=== PATIENT | female | born 1960 | race Caucasian/White ===

== ENCOUNTER → 2016-03-30 | Outpatient (CLI) | payer BC ==
[~2016-03-30] MED LIST: CALC1CHW47 PO; IBUP600T44 PO; MULT-506 PO
== END | disposition home or self-care (01) ==
LOC: C.PATHSPEC 13:15
PROVIDERS: ATTEND Dermatology
DX: C44.321 Squamous cell carcinoma of skin of nose (principal); D23.5 Other benign neoplasm of skin of trunk; C44.719 Basal cell carcinoma of skin of left lower limb, including hip

== ENCOUNTER → 2016-04-28 | Outpatient (CLI) | payer BC | END | disposition home or self-care (01) | LOC: C.PATHSPEC 14:09 | PROVIDERS: ATTEND Dermatology | DX: Z08 Encounter for follow-up examination after completed treatment for malignant neoplasm (principal); Z85.828 Personal history of other malignant neoplasm of skin ==

== ENCOUNTER → 2016-05-17 | Outpatient (CLI) | payer BC | END | disposition home or self-care (01) | LOC: C.PATHSPEC 13:46 | PROVIDERS: ATTEND Dermatology | DX: D23.5 Other benign neoplasm of skin of trunk (principal) ==

== ENCOUNTER → 2016-07-05 | Outpatient (CLI) | payer BC | END | disposition home or self-care (01) | LOC: C.LABSPEC 16:23 | PROVIDERS: ATTEND Dermatology | DX: S81.802A Unspecified open wound, left lower leg, initial encounter (principal); X58.XXXA Exposure to other specified factors, initial encounter ==

== ENCOUNTER → 2016-07-08 | Outpatient (CLI) | payer BC | END | disposition home or self-care (01) | LOC: C.LABSPEC 12:55 | PROVIDERS: ATTEND Dermatology | DX: S81.802A Unspecified open wound, left lower leg, initial encounter (principal); X58.XXXA Exposure to other specified factors, initial encounter ==

== ENCOUNTER → 2016-10-11 | Outpatient (CLI) | payer BC ==
[2016-10-11 14:47] LABS: BASO % 0.4 %; BASO ABS # 0.02 K/uL (0-0.2); COMPLETE YES; EOS % 2.5 %; HEMATOCRIT 40.4 % (37-47); IG% 0.2 %; LYMPH % 22.1 %; LYMPH ABS # 1.06 K/uL (1.2-3.4); MEAN CELL VOLUME 93.3 fL (80-100); MEAN CORPUSCULAR HEMOGLOBIN 30.5 pg (25-34); MEAN CORPUSCULAR HGB CONC 32.7 g/dl (32-36); MEAN PLATELET VOLUME 10.1 fL (7.4-10.4); MONO % 7.7 %; NEUT % 67.1 %; PLATELET COUNT 265 K/uL (130-400); RED BLOOD COUNT 4.33 M/uL (4.2-5.4)
== END | disposition home or self-care (01) ==
LOC: C.LAB1850 12:59
PROVIDERS: ATTEND Family Medicine
DX: L50.9 Urticaria, unspecified (principal)

== ENCOUNTER → 2016-11-01 | Outpatient (CLI) | payer BC ==
[2016-11-01 10:21] LABS: BLOOD UREA NITROGEN 12 mg/dl (7-18); BUN/CREATININE RATIO 16.3 (10-20); CALCIUM 9.1 mg/dl (8.5-10.1); CARBON DIOXIDE 30 mmol/L (21-32); CHLORIDE 108 mmol/L (98-107); CHOLESTEROL 229 mg/dl (0-200); CREATININE 0.74 mg/dl (0.60-1.20); GLUCOSE 91 mg/dl (70-99); POTASSIUM 4.4 mmol/L (3.5-5.1); SODIUM 142 mmol/L (136-145)
[2016-11-01 10:35] LABS: HDL CHOLESTEROL 76 mg/dl; LDL CHOLESTEROL CALCULATED 132 mg/dl; TRIGLYCERIDES 103 mg/dl (0-150); VERY LOW DENSITY LIPOPROT CALC 21 mg/dl
[2016-11-01 10:54] LABS: ESTIMATED AVERAGE GLUCOSE 114 mg/dl; HA1C FLAG Normal (Normal)
== END | disposition home or self-care (01) ==
LOC: C.LAB1850 08:44
PROVIDERS: ATTEND Family Medicine
DX: Z00.00 Encounter for general adult medical examination without abnormal findings (principal); Z11.59 Encounter for screening for other viral diseases; Z13.220 Encounter for screening for lipoid disorders; Z13.1 Encounter for screening for diabetes mellitus; R07.89 Other chest pain

== ENCOUNTER → 2016-11-01 | Outpatient (CLI) | payer BC | END | disposition home or self-care (01) | LOC: C.MAMM 07:57 | PROVIDERS: ATTEND Family Medicine | DX: M85.851 Other specified disorders of bone density and structure, right thigh (principal); Z78.0 Asymptomatic menopausal state ==

== ENCOUNTER → 2016-12-08 | Outpatient (CLI) | payer BC | END | disposition home or self-care (01) | LOC: C.PATHSPEC 15:58 | PROVIDERS: ATTEND Dermatology | DX: L57.0 Actinic keratosis (principal); L82.1 Other seborrheic keratosis ==

== ENCOUNTER → 2017-06-08 | Outpatient (CLI) | payer OTHER ==
--- NOTE | 2017-06-08 15:16 | MAMMOGRAPHY REPORT ---
BILATERAL DIGITAL SCREENING MAMMOGRAM TOMOSYNTHESIS WITH CAD: 06/08/2017 CLINICAL HISTORY: Routine screening. Patient has no complaints. TECHNIQUE: Breast tomosynthesis in addition to standard 2D mammography was performed. Current study was also evaluated with a Computer Aided Detection (CAD) system. COMPARISON: Comparison is made to exams dated: 03/03/2016 mammogram, 03/02/2015 mammogram, 02/27/2014 m ammogram, 01/22/2013 mammogram, 01/16/2012 mammogram, and 01/10/2011 mammogram - [facility] [place]. BREAST COMPOSITION: There are scattered areas of fibroglandular density in both breasts. FINDINGS: No suspicious masses, calcifications, or areas of architectural distortion are noted in ei ther breast. There has been no significant interval change compared to prior exams. Scattered bilater al benign-appearing calcifications are not significantly changed. Small circumscribed benign-appeari ng masses scattered bilaterally are also stable. IMPRESSION: ACR BI-RADS CATEGORY 2: BENIGN There is no mammographic evidence of malignancy. A 1 year screening mammogram is recommended. The pa tient will receive written notification of the results. Approximately 10% of breast cancers are not detected with mammography. A negative mammographic report should not delay biopsy if a clinically suggestive mass is present. Ilene Meza M.D. /:06/08/2017 12:23:51 Drum Sander: Fiorella OROPEZA(R)(M), [facility] letter sent: Normal 1/2 BI-RADS Code: ACR BI-RADS Category 2: Benign
== END | disposition home or self-care (01) ==
LOC: C.MAMM 08:50
PROVIDERS: ATTEND Obstetrics & Gynecology
DX: Z12.31 Encounter for screening mammogram for malignant neoplasm of breast (principal)

== ENCOUNTER 2021-09-20 10:43 | Inpatient (IN) ==
[2021-09-20] MEDS ORDERED: SODIUM CHLORIDE 0.9% 1000ML 2,000 ML IV ONE (10:56)
[2021-09-20] MEDS ORDERED: KETOROLAC TROMETHAMINE 15 MG/ML VIAL IV ONE (10:56)
[2021-09-20] MEDS ORDERED: ONDANSETRON INJ 2 MG/ML 2 ML VIAL IV STA (10:56)
--- NOTE | 2021-09-20 11:00 | Emergency Department Note ---
Impression & Plan Acute hyponatremia, Diarrhea, ARLET (acute kidney injury), Acute hypokalemia ED Provider Note NAME: JENNIFER RODGERS AGE: 61 SEX: F : 1960 ARRIVES VIA: Walk-In INFORMANT: Patient ED PROVIDER(S): Ronnie Tamayo DO CHIEF COMPLAINT: Nausea/diarrhea HPI: Patient is a 61-year-old female with a past medical history of pancreatic cyst, basal cell carcinoma and lumbar radiculopathy that presents the ER for nausea and diarrhea. Symptoms started this past Monday. She notes that she was having chills and feeling hot and cold. She was very nauseated and has been having persistent diarrhea about every 1-2 hours since then. She also admits to anterior headache which started with the symptoms. Headache is about a 5 out of 10 and describes it as a throbbing pain. She called her doctor and Was seen and sent in by [facility] due to the persistent diarrhea. No chest pain or shortness of breath. No recorded fevers.Stools are now green in color. She denies any backpacking or hiking. No one around her has been sick. She been tested for COVID and was negative.No belly pain. ROS: See above HPI for pertinent positives & negatives. A total of 10 systems reviewed and were otherwise negative. PAST MEDICAL HISTORY:See Below PAST SURGICAL HISTORY:See Below FAMILY HISTORY:See Below SOCIAL HISTORY:See Below HOME MEDICATIONS:See Below ALLERGIES:See Below VITALS:See Below PHYSICAL EXAMINATION: GENERAL: Sitting up in bed, alert, well appearing, well nourished, no distress, non-toxic EYE EXAM: normal conjunctiva. PERRL and EOM's intact. OROPHARYNX: no exudate, no erythema, lips, buccal mucosa, and tongue normal and mucous membranes are moist NECK: supple, no nuchal rigidity, no adenopathy, non-tender LUNGS: Clear to auscultation. Normal chest wall mechanics HEART: no murmurs, S1 normal and S2 normal ABDOMEN: abdomen soft, non-tender, normo-active bowel sounds, no masses, no rebound or guarding. BACK: Back is symmetrical on inspection and there is no deformity, no midline tenderness, no CVA tenderness. SKIN: no rashes and no bruising UPPER EXTREMITIES: upper extremities are grossly normal. LOWER EXTREMITIES: No pitting edema. NEURO EXAM: Normal sensorium, cranial nerves II-XII intact, normal speech, no weakness of arms, no weakness of legs. No drift. Finger to nose intact. Gross sensation intact. Ambulates without difficulty. MEDICAL DECISION MAKING: Patient is a 61-year-old female who presents ER for above-stated complaint.IV was established blood work was obtained. Labs show mild leukopenia at 4000. Hemoglobin was slightly elevated at 16 likely secondary to dehydration. BMP with hyponatremia 124 and hypokalemia 2.8. Creatinine was elevated 2.4. Lactate LFTs lipase were unremarkable. UA was clean. Ordered a stool culture but she was unable to give this in the ER. CT abdomen pelvis was unremarkable. She was given 3 L of IV fluids while in the ER. She was updated bedside discussed with the hospitalist admitted for further work-up. Triage Nursing notes reviewed. Limited review of prior medical records performed Vital Signs: reviewed and remarkable for no significant abnormalities Differential diagnosis: Differential diagnoses includes but is not limited to gastritis, peptic ulcer disease, GERD, gallbladder disease, pancreatitis, small bowel obstruction, acute coronary syndrome, pericarditis, ischemic bowel, irritable bowel disease, irritable bowel syndrome, appendicitis, diverticulitis, malignancy, hernia, urinary tract infection, torsion, /ectopic (if female), perforation, trauma, infectious. ER treatment provided: See below Diagnostics interpreted by me: ECG: none Cardiac Monitoring: An order was placed for continuous cardiac monitoring. The monitor shows a rate of 70 with sinus rhythm. Laboratory studies: As stated above and show below. Imaging studies: CT abdomen pelvis was unremarkable Consultation(s): Discussed with hospitalist for further evaluation [facility] [place] Procedures: none Critical Care: None Past Med/Surg History Medical History (Updated 09/20/21 @ 17:37 by Ronnie Tamayo DO) Disc degeneration, lumbar Dysplastic nevus H/O carcinoma in situ of skin Herpes simplex type 1 infection History of basal cell carcinoma History of squamous cell carcinoma in situ of skin Lumbar radiculopathy Osteopenia Pancreatic cyst Surgical History S/P appendectomy S/P tubal ligation S/P vaginal hysterectomy secondary to uterine prolapse Family History Mother Cardiac pacemaker Pancreas cancer Father Hypertension Type 2 diabetes mellitus History of heart valve replacement Sister Melanoma Denies family history of Colon cancer Ovarian cancer Breast cancer Social History Smoking Status: Never smoker Second Hand Exposure: No; Hx Alcohol Use: Yes (Social) Hx Substance Use: No Preferred Language: Pashto marital status: current occupational status: retired Feels Safe at Home: Yes Dental Care, Regularly: Yes Physical Activity Frequency: Other Physical Activity Frequency Comment: Regularly Seatbelt Use: always Sunscreen Use: Yes Allergies Allergies Allergy/AdvReac Type Severity Reaction Status Date / Time lactose AdvReac Gastrointestinal Unverified 09/20/21 15:43 Upset Home Meds Home Medications Medication Instructions Recorded Confirmed No Known Home Medications 09/20/21 09/20/21 Results & Data (ED) Vital Signs Vital Signs - 24 hr 09/20/21 10:43 09/20/21 10:45 09/20/21 10:56 Temperature 36.4 C L Temperature Source Temporal Artery Scan Pulse Rate 88 90 88 Pulse Rate [Apical] 88 Pulse Rhythm Regular Regular Pulse Rhythm [Apical] Regular Pulse Strength [Apical] Normal Respiratory Rate 20 16 19 Respiratory Effort / Characteristics Non-Labored Spontaneous Respiratory Depth Normal Respiratory Pattern Regular Blood Pressure 131/93 Blood Pressure [Right Arm] 136/94 Blood Pressure Mean 105 Blood Pressure Mean [Right Arm] 108 Blood Pressure Position [Right Arm] Sitting Pulse Oximetry 98 97 98 Oxygen Delivery Method Room Air Room Air Room Air Sepsis Recent Fever Within 48 Hours No Sepsis New/Unexplained Change in Mental Status No Sepsis Action Taken by Nursing No Action Required 09/20/21 11:30 09/20/21 12:00 09/20/21 14:05 Temperature Temperature Source Pulse Rate Pulse Rate [Apical] 72 74 72 Pulse Rhythm Pulse Rhythm [Apical] Pulse Strength [Apical] Respiratory Rate 20 20 20 Respiratory Effort / Characteristics Non-Labored Non-Labored Non-Labored Respiratory Depth Normal Normal Normal Respiratory Pattern Blood Pressure Blood Pressure [Right Arm] 151/95 H 136/94 127/82 Blood Pressure Mean Blood Pressure Mean [Right Arm] 113 108 97 Blood Pressure Position [Right Arm] Pulse Oximetry 96 98 98 Oxygen Delivery Method Room Air Room Air Room Air Sepsis Recent Fever Within 48 Hours Sepsis New/Unexplained Change in Mental Status Sepsis Action Taken by Nursing Laboratory Data Result diagrams: 09/20/21 11:25 09/20/21 14:38 Lab Results 09/20/21 09/20/21 09/20/21 Range/Units 11:10 11:25 11:25 WBC 4.49 L (4.8-10.8) K/uL RBC 5.28 (4.2-5.4) M/uL Hgb 16.6 H (12.0-16.0) g/dL Hct 46.1 (37-47) % MCV 87.3 (80-100) fL MCH 31.4 (25-34) pg MCHC 36.0 (32-36) g/dL RDW Std Deviation 43.6 (36.4-46.3) fL RDW Coeff of Aby 13.6 (11.5-14.5) % Plt Count 288 (130-400) K/uL MPV 10.6 H (7.4-10.4) fL Immature Gran % (Auto) 0.2 % Neut % (Auto) 84.3 % Lymph % (Auto) 8.2 % [place] % (Auto) 7.3 % Eos % (Auto) 0.0 % Baso % (Auto) 0.0 % Neut # (Auto) 3.78 (1.4-6.5) K/uL Lymph # (Auto) 0.37 L (1.2-3.4) K/uL [place] # (Auto) 0.33 (0.11-0.59) K/uL Eos # (Auto) 0.00 (0-0.5) K/uL Baso # (Auto) 0.00 (0-0.2) K/uL Immature Gran # (Auto) 0.01 (0.00-0.02) K/uL Sodium 124 L (136-145) mmol/L Potassium 2.8 L (3.5-5.1) mmol/L Chloride 85 L (98-107) mmol/L Carbon Dioxide 22 (21-32) mmol/L Anion Gap 17 H (3-11) BUN 50 H (6-23) mg/dl Creatinine 2.49 H (0.6-1.2) mg/dl Est Cr Clr Drug Dosing 22.4 ml/min Est GFR ( Amer) 23.4 ml/min Est GFR (Non-Af Amer) 20.2 ml/min BUN/Creatinine Ratio 20.1 H (10-20) Glucose 110 H (70-99(Fasting)) mg/dl Calcium 9.9 (8.5-10.1) mg/dl Magnesium (1.7-2.4) mg/dl Total Bilirubin 0.5 (0.2-1.0) mg/dl AST 27 (13-39) U/L ALT 25 (7-52) U/L Alkaline Phosphatase 95 (34-104) U/L Total Protein 8.8 H (6.0-8.3) gm/dl Albumin 5.0 (3.4-5.0) gm/dl Globulin 3.8 (2.5-4.0) gm/dl Albumin/Globulin Ratio 1.3 (0.9-2) Lipase 13 (11-82) U/L SARS-CoV-2 (PCR) NEGATIVE (Negative) Influenza Type A (PCR) Negative (Neg) Influenza Type B (PCR) Negative (Neg) RSV (RT-PCR) Negative (Neg) 09/20/21 Range/Units 11:25 WBC (4.8-10.8) K/uL RBC (4.2-5.4) M/uL Hgb (12.0-16.0) g/dL Hct (37-47) % MCV (80-100) fL MCH (25-34) pg MCHC (32-36) g/dL RDW Std Deviation (36.4-46.3) fL RDW Coeff of Aby (11.5-14.5) % Plt Count (130-400) K/uL MPV (7.4-10.4) fL Immature Gran % (Auto) % Neut % (Auto) % Lymph % (Auto) % [place] % (Auto) % Eos % (Auto) % Baso % (Auto) % Neut # (Auto) (1.4-6.5) K/uL Lymph # (Auto) (1.2-3.4) K/uL [place] # (Auto) (0.11-0.59) K/uL Eos # (Auto) (0-0.5) K/uL Baso # (Auto) (0-0.2) K/uL Immature Gran # (Auto) (0.00-0.02) K/uL Sodium (136-145) mmol/L Potassium (3.5-5.1) mmol/L Chloride (98-107) mmol/L Carbon Dioxide (21-32) mmol/L Anion Gap (3-11) BUN (6-23) mg/dl Creatinine (0.6-1.2) mg/dl Est Cr Clr Drug Dosing ml/min Est GFR ( Amer) ml/min Est GFR (Non-Af Amer) ml/min BUN/Creatinine Ratio (10-20) Glucose (70-99(Fasting)) mg/dl Calcium (8.5-10.1) mg/dl Magnesium 2.3 (1.7-2.4) mg/dl Total Bilirubin (0.2-1.0) mg/dl AST (13-39) U/L ALT (7-52) U/L Alkaline Phosphatase (34-104) U/L Total Protein (6.0-8.3) gm/dl Albumin (3.4-5.0) gm/dl Globulin (2.5-4.0) gm/dl Albumin/Globulin Ratio (0.9-2) Lipase (11-82) U/L SARS-CoV-2 (PCR) (Negative) Influenza Type A (PCR) (Neg) Influenza Type B (PCR) (Neg) RSV (RT-PCR) (Neg) Administered Medications Discontinued Medications Sodium Chloride (Nss 1000ml) 2,000 mls @ 999 mls/hr IV .Q2H1M ONE Stop: 09/20/21 12:56 Last Infusion: 09/20/21 13:15 Dose: 0 mls/hr Documented by: [id number] Admin: 09/20/21 11:24 Dose: 999 mls/hr Documented by: [id number] Parenteral Electrolytes (Normosol-R) 1,000 mls @ 999 mls/hr IV .Q1H1M ONE Stop: 09/20/21 13:44 Last Infusion: 09/20/21 14:49 Dose: 0 mls/hr Documented by: [id number] Admin: 09/20/21 13:15 Dose: 999 mls/hr Documented by: [id number] Potassium Chloride (K Charles / Wtr) 10 meq in 100 mls @ 100 mls/hr IV ONE ONE; Protocol Stop: 09/20/21 13:43 Last Infusion: 09/20/21 14:49 Dose: 0 mls/hr Documented by: [id number] Admin: 09/20/21 13:18 Dose: 100 mls/hr Documented by: [id number] Magnesium Sulfate/Dextrose (Magnesium Sulfate / D5w) 1 gm in 100 mls @ 100 mls/hr IV NOW STA Stop: 09/20/21 13:44 Last Infusion: 09/20/21 15:43 Dose: 0 mls/hr Documented by: [id number] Admin: 09/20/21 14:43 Dose: 100 mls/hr Documented by: [id number] Ketorolac Tromethamine (Ketorolac Tromethamine 15 Mg/Ml Vial) 15 mg IV NOW ONE Stop: 09/20/21 10:57 Last Admin: 09/20/21 11:24 Dose: 15 mg Documented by: [id number] Ondansetron HCl (Ondansetron Inj 2 Mg/Ml 2 Ml Vial) 4 mg IV NOW STA Stop: 09/20/21 10:57 Last Admin: 09/20/21 11:24 Dose: 4 mg Documented by: [id number] Potassium Chloride (Potassium Chloride Crtab 20 Meq Tabcr) 40 meq PO NOW STA Stop: 09/20/21 12:45 Last Admin: 09/20/21 13:17 Dose: 40 meq Documented by: [id number] Imaging Data Radiologist's Impression: Head CT 09/20/21 10:56 CT OF THE HEAD WITHOUT CONTRAST CLINICAL HISTORY: Headache. COMPARISON STUDY: No previous studies for comparison. CT DOSE: 614.27 mGy.cm TECHNIQUE: Helical axial images of the head were obtained without IV contrast. A utomated exposure control was utilized for the study. A dose lowering technique was utilized adhering to the principles of ALARA. FINDINGS: No acute intracranial hemorrhage, midline shift or mass effect is present. The ventricular system is unremarkable. The basal cisterns are patent. No extra-axial collections are present. There are no findings to suggest acute dural sinus thrombosis or acute territorial infarct. No significant calvarial abnormalities are present. Visualized portions of the sinuses and mastoid air cells are clear. IMPRESSION: No acute intracranial findings. ACT 112: Negative or not required by law. Electronically signed by: Gary Harmon M.D. 09/20/2021 11:58 AM Abdomen/Pelvis CT 09/20/21 13:14 CT SCAN OF THE ABDOMEN AND PELVIS WITHOUT IV CONTRAST CLINICAL HISTORY: Nausea and vomiting. Fever. Acute renal insufficiency. COMPARISON STUDY: Abdominal CT dated 11/08/2019 TECHNIQUE: CT scan of the abdomen and pelvis is performed from the lung bases to the proximal femora. Images are reviewed in the axial, sagittal, and coronal planes. IV contrast was not administered for this examination due to poor renal function. A dose lowering technique was utilized adhering to the principles of ALARA. CT DOSE: 326.37 mGy.cm FINDINGS: Lung bases: The heart is normal in size noting trace pericardial effusion. The lung bases are clear noting dependent atelectasis. There is a tiny hiatal hernia. Liver: The unenhanced liver is normal in size, contour, and attenuation. There is no intrahepatic biliary ductal dilatation. Gallbladder: There are gallstones with no CT evidence of acute cholecystitis. Spleen: Normal in size and attenuation. Pancreas: A 12 mm simple cystic lesion of the pancreatic body is unchanged from 2019 and typical for a sidebranch IPMN. The unenhanced pancreas is otherwise normal as visualized. Adrenal glands: Unremarkable. Kidneys: The unenhanced kidneys are normal in size and without hydronephrosis. There are no renal calculi identified. There is no evidence of contour deforming renal mass lesion. Abdominal vasculature: The abdominal aorta is normal in course and caliber noting mild to moderate atherosclerotic calcification. Bowel: Liquid stool seen throughout the colon. There is mild colonic wall thickening and pericolonic infiltration. The appearance is typical for a nonspecific pancolitis. This is greatest involving the right:. The cecum is mildly distended measuring up to 7 cm in diameter. This is similar to previous. The appendix is not identified and reported surgically absent. Peritoneum: There is no intraperitoneal free air or abdominal ascites. There is a fat-containing umbilical hernia. Lymphadenopathy: None. Pelvic viscera: The bladder is normal as visualized. The uterus is surgically absent. No adnexal lesion is seen. Skeletal structures: The skeletal structures are osteopenic. There is mild lumbosacral spondylosis and scoliosis. No lytic or blastic lesions are seen. IMPRESSION: 1. Findings are consistent with a nonspecific pancolitis. This is likely on an infectious or inflammatory basis and clinical correlation will be required. 2. No bowel obstruction. 3. Cholelithiasis. 4. Additional findings as above. ACT 112: Negative or not required by law. Electronically signed by: Atul Murray M.D. 09/20/2021 4:32 PM Discharge Plan Visit Data Chief Complaint: Dehydration Stated Complaint: DEHYDRATION,REF BY DOC ED Provider: Ronnie Tamayo Discharge Problem: Acute hyponatremia, Diarrhea, ARLET (acute kidney injury), Acute hypokalemia Discharge Problem: Diarrhea Qualifiers: Diarrhea type: unspecified type Qualified Code(s): R19.7 - Diarrhea, unspecified
--- NOTE | 2021-09-20 11:59 | CT Scan Report ---
CT OF THE HEAD WITHOUT CONTRAST CLINICAL HISTORY: Headache. COMPARISON STUDY: No previous studies for comparison. CT DOSE: 614.27 mGy.cm TECHNIQUE: Helical axial images of the head were obtained without IV contrast. Automated exposure con trol was utilized for the study. A dose lowering technique was utilized adhering to the principles o f ALARA. FINDINGS: No acute intracranial hemorrhage, midline shift or mass effect is present. The ventricular system is unremarkable. The basal cisterns are patent. No extra-axial collections are present. There are no findings to suggest acute dural sinus thrombosis or acute territorial infarct. No significant calvarial abnormalities are present. Visualized portions of the sinuses and mastoid air cells are ham ar. IMPRESSION: No acute intracranial findings. ACT 112: Negative or not required by law. Electronically signed by: Gary Harmon M.D. 09/20/2021 11:58 AM
[2021-09-20 12:04] LABS: Influenza A virus by PCR Negative (Neg); Influenza B virus by PCR Negative (Neg); RSV by PCR Negative (Neg); SARS CoV2 RNA(COVID-19) InHosp NEGATIVE (Negative)
[2021-09-20 12:14] LABS: Albumin Globulin Ratio 1.3 (0.9-2); BUN Creatinine Ratio 20.1 (10-20); Bilirubin,Total 0.5 mg/dl (0.2-1.0); Calcium 9.9 mg/dl (8.5-10.1); Creatinine Clr Calc Pharmacy 22.4 ml/min; Est GFR (African American) 23.4 ml/min; Est GFR (Non-African American) 20.2 ml/min; Globulin 3.8 gm/dl (2.5-4.0); Potassium 2.8 mmol/L (3.5-5.1); Total Protein 8.8 gm/dl (6.0-8.3)
[2021-09-20 12:17] LABS: Hematocrit (blood only) 46.1 % (37-47); Hemoglobin 16.6 g/dL (12.0-16.0); Mean Corpuscular Hemoglobin 31.4 pg (25-34); Mean Corpuscular Volume 87.3 fL (80-100); Mean Platelet Volume 10.6 fL (7.4-10.4); Platelet Count 288 K/uL (130-400); RDW Coefficient of Variation 13.6 % (11.5-14.5); RDW Standard Deviation 43.6 fL (36.4-46.3); Red Blood Count 5.28 M/uL (4.2-5.4); White Blood Count 4.49 K/uL (4.8-10.8)
[2021-09-20 12:44] LABS: Immature Granulocytes # (auto) 0.01 K/uL (0.00-0.02); Immature Granulocytes % (auto) 0.2 %; Lymphocytes # (auto) 0.37 K/uL (1.2-3.4); Lymphocytes % (auto) 8.2 %; Monocytes # (auto) 0.33 K/uL (0.11-0.59); Monocytes % (auto) 7.3 %; Neutrophils # (auto) 3.78 K/uL (1.4-6.5); Neutrophils % (auto) 84.3 %
[2021-09-20] MEDS ORDERED: POTASSIUM CHLORIDE / WTR 10 MEQ/100 ML PLCT IV ONE (12:44)
[2021-09-20] MEDS ORDERED: NORMOSOL-R 1,000 ML IV ONE (12:44)
[2021-09-20] MEDS ORDERED: POTASSIUM CHLORIDE CRTAB 20 MEQ TABCR PO STA (12:44)
[2021-09-20] MEDS ORDERED: MAGNESIUM SULFATE / D5W 1 GM/100 ML BAG IV STA (12:45)
--- NOTE | 2021-09-20 14:04 | History & Physical Report ---
Date of Service September 20, 2021 Assessment & Plan (1) Diarrhea: Plan: Patient with 4 day history of diarrhea, n/v resulting in hypovolemia, electrolyte disturbances, and ARLET - Symptoms appeared to have started following food ingestion- stool sample pending - is without blood in stools - DDX- Viral gastroenteritis vs. Bacterial Gastroenteritis, vs. Tickborne or combination - Supportive care with clears, IVF resuscitation, nausea medications and clear bland diet - Salmonella toxin positive in stool - awaiting speciation - since hospitalized and sympotmatic- Levaquin daily IV until able to tolerate PO (2) Leukopenia: Plan: As above - bacterial vs. tickborne vs. hematological - leukopenia although without elevated LFTs - remains with myalgias and headaches, diarrhea - will send lyme and anap lasmosis - Will start on Doxycycline IV q 12 - Had leukopenia in 11/14 with routine lab draw down to 3.31- no further workup performed - was drawn for fatigue (3) Hyponatremia: Plan: At this time history most consistent with decrease in oral solute intake and free water loss - symptomatic possibly with headache - serum osmo, serum osmo, and urine sodium pending - Continue with Crystalloid infusion - follow BMP q4 hour- goal maximum would be 8mmol/24hour- 132meq - NA 135 on secondary check at 1830- change to D5W overnight (4) Hypokalemia: Plan: Secondary to decrease oral intake with stool losses - Oral replacement already started in EMD with 40meq PO and 10meq IV - will give aother 40meq tonight - 20 meq in AM if needed (5) ARLET (acute kidney injury): Plan: Likely pre-renal - Will obtain CT of abdomen and pelvis to evaluate for obstructive or infective pathology - Urine NA pending - UA pending - HCO3 22 - no new medications started - IVF as above follow BMP - AG of 17 with noted increase in BUN to 50 - (6) Headache: Plan: Top of headache, not noted to make nausea worse - likely multifactorial at this time with - hypovolemia, hyponatremia - CT scan in EMD without acute pathology - without fevers, without encephalopathy, and without seizure - Maybe consistent with lyme- as above - IVF as above follow with correction of sodium and volume status, - Tylenol PRN - Will have PRN dose of Sumatriptan with hx migraines- History of Present Illness Primary Care Provider: Jessy Rangel DO 61 YOF with medical history of: Lyme disease, altitude sickness, basal cell carcinoma/squamous cell carcinoma of the skin, DGD. Patient comes to the EMD today for complaints of N/V/D and headache associated with dizziness that has been on going for past 4 days. Patient states that on Monday the patient was out power-washing the house and deck with mold and water, Monday she ate some ham and egg whites, and then started to develop n/v/diarrhea approx 2-3 hours after eating. Her stools have mostly been water and initially were brown and then changed to light green sat-into Monday. She has been trying to drink but about 20-30 minutes after drinking she becomes nauseated and either vomits or has diarrhea. Her abdominal pain is mostly in the lower quadrant but she refers to it as just with the gurgling before diarrheal episode. She also endorses a headache at the top of her head that just got worse this morning, which is why she came to EMD as well as she got dizzy going up the steps to go the bathroom yesterday evening. There has not been any blood or mucous in the stools. In the EMD the patient had routine labs performed and CT scan of her head for her headache. Her BMP returns with hyponatremia to 124 and hypochloridemia. She is also noted with increase in her BUN and AUTOM[employer]IAN to 50/2.49, hypokalemia. Her WBC is mildly leukopenic. Patient has history of Lyme disease back in 2019, and she reports that she feels maday like that at this time but without the myalgias. She endorses that she pulls ticks off her all the time. Will send anaplasmosis and tick labs as well as start her on Doxycycline. Will admit for IV fluids and electrolyte management. COVID test on admission is: NEGATIVE, this was also NEGATIVE as outpatient at the end of last week. Allergies Allergy/AdvReac Type Severity Reaction Status Date / Time lactose AdvReac Gastrointestinal Unverified 09/20/21 15:43 Upset Home Medications Medication Instructions Recorded Confirmed Type No Known Home Medications 09/20/21 09/20/21 History Past Med/Surg History Medical History (Updated 09/20/21 @ 17:37 by Ronnie Tamayo DO) Disc degeneration, lumbar Dysplastic nevus H/O carcinoma in situ of skin Herpes simplex type 1 infection History of basal cell carcinoma History of squamous cell carcinoma in situ of skin Lumbar radiculopathy Osteopenia Pancreatic cyst Surgical History S/P appendectomy S/P tubal ligation S/P vaginal hysterectomy secondary to uterine prolapse Family History Mother Cardiac pacemaker Pancreas cancer Father Hypertension Type 2 diabetes mellitus History of heart valve replacement Sister Melanoma Denies family history of Colon cancer Ovarian cancer Breast cancer Social History Smoking Status: Never smoker Second Hand Exposure: No; Hx Alcohol Use: Yes Alcohol type: wine Hx Substance Use: No Preferred Language: [place] Communication Ability: Effective [employer] Administrator Required: No marital status: Current Living Situation: Spouse current occupational status: retired Other Information That Helps Us Care for You: No Feels Safe at Home: Yes Dental Care, Regularly: Yes Physical Activity Frequency: Other Physical Activity Frequency Comment: Regularly Seatbelt Use: always Sunscreen Use: Yes Review of Systems Review of Systems: REVIEW OF SYSTEMS: Constitutional: (+) cold sweats and chills, No fever Eyes: No diplopia, no worsening or blurred vision ENT: normal hearing, no trouble swallowing Respiratory: No cough, sputum, dyspnea at rest or on exertion Cardiovascular: No chest pain, tightness or palpitations Abdomen: (+) nausea, vomiting, diarrhea, No pain, or constipation Musculoskeletal: No joint pain, calf pain, swelling Neurologic: No weakness, numbness/tingling, or balance problems Psychiatric: No anxiety or depression Skin: No rash or itch Physical Exam Physical Exam: PHYSICAL EXAM: General: awake, alert, fatigued appearing Head: headache across the top of head, Normocephalic, atraumatic ENT: PERRLA, EOMI, no pharyngeal exudate, mucous membranes dry Neuro: AAO x 3, speech clear and appropriate, strength intact bilaterally 5/5, sensation intact and equal all extremities and dermatomes, no pronator drift Chest: equal rise and fall of the chest, no accessory muscle use, no heaves or thrills, Clear to auscultation, on room air, Cardiac: Regular rate and rhythm, telemetry reviewed, skin warm dry, cap refill <3 seconds, peripheral pulses +2 no JVD, no murmur, no edema GI: NABS hyperactive all quadrants, soft, nontender to palpation, no rebound, guarding or tenderness : Spontaneously voiding, no pain, no CVA tenderness, Extremities: Normal inspection, no peripheral edema or erythema, calfs nontender to palpation Psych: Normal mood and affect Skin: no rash or erythema Results & Data Results & Data ([facility]) Vital Signs (Past 12 Hours) Vital Signs Temp Pulse Pulse Resp BP BP Pulse Ox 09/20/21 10:56 88 19 98 09/20/21 10:45 36.4 C L 90 16 131/93 97 09/20/21 10:43 88 88 20 136/94 98 Laboratory Results Abnormal lab results 09/20/21 09/20/21 Range/Units 11:25 11:25 WBC 4.49 L (4.8-10.8) K/uL Hgb 16.6 H (12.0-16.0) g/dL MPV 10.6 H (7.4-10.4) fL Lymph # (Auto) 0.37 L (1.2-3.4) K/uL Sodium 124 L (136-145) mmol/L Potassium 2.8 L (3.5-5.1) mmol/L Chloride 85 L (98-107) mmol/L Anion Gap 17 H (3-11) BUN 50 H (6-23) mg/dl Creatinine 2.49 H (0.6-1.2) mg/dl BUN/Creatinine Ratio 20.1 H (10-20) Glucose 110 H (70-99(Fasting)) mg/dl Total Protein 8.8 H (6.0-8.3) gm/dl Diagnostic Findings Head CT 09/20/21 10:56 CT OF THE HEAD WITHOUT CONTRAST CLINICAL HISTORY: Headache. COMPARISON STUDY: No previous studies for comparison. CT DOSE: 614.27 mGy.cm TECHNIQUE: Helical axial images of the head were obtained without IV contrast. Automated exposure control was utilized for the study. A dose lowering technique was utilized adhering to the principles of ALARA. FINDINGS: No acute intracranial hemorrhage, midline shift or mass effect is present. The ventricular system is unremarkable. The basal cisterns are patent. No extra-axial collections are present. There are no findings to suggest acute dural sinus thrombosis or acute territorial infarct. No significant calvarial abnormalities are present. Visualized portions of the sinuses and mastoid air cells are clear. IMPRESSION: No acute intracranial findings. ACT 112: Negative or not required by law. Electronically signed by: Gary Harmon M.D. 09/20/2021 11:58 AM Medications Administered Home Medications acetazolamide 125 mg tablet 125 mg PO BID PRN 4 Days #8 tab 11/11/20 [Rx Confirmed 11/11/20] methocarbamol 500 mg tablet 500 mg PO QID PRN #30 tab 07/19/21 [Rx] Discontinued Medications Sodium Chloride (Nss 1000ml) 2,000 mls @ 999 mls/hr IV .Q2H1M ONE Stop: 09/20/21 12:56 Last Infusion: 09/20/21 13:15 Dose: 0 mls/hr Documented by: [id number] Admin: 09/20/21 11:24 Dose: 999 mls/hr Documented by: [id number] Parenteral Electrolytes (Normosol-R) 1,000 mls @ 999 mls/hr IV .Q1H1M ONE Stop: 09/20/21 13:44 Last Admin: 09/20/21 13:15 Dose: 999 mls/hr Documented by: [id number] Potassium Chloride (K Charles / Wtr) 10 meq in 100 mls @ 100 mls/hr IV ONE ONE; Protocol Stop: 09/20/21 13:43 Last Admin: 09/20/21 13:18 Dose: 100 mls/hr Documented by: [id number] Ketorolac Tromethamine (Ketorolac Tromethamine 15 Mg/Ml Vial) 15 mg IV NOW ONE Stop: 09/20/21 10:57 Last Admin: 09/20/21 11:24 Dose: 15 mg Documented by: [id number] Ondansetron HCl (Ondansetron Inj 2 Mg/Ml 2 Ml Vial) 4 mg IV NOW STA Stop: 09/20/21 10:57 Last Admin: 09/20/21 11:24 Dose: 4 mg Documented by: [id number] Potassium Chloride (Potassium Chloride Crtab 20 Meq Tabcr) 40 meq PO NOW STA Stop: 09/20/21 12:45 Last Admin: 09/20/21 13:17 Dose: 40 meq Documented by: [id number] ECG Additional Comments: Normal sinus rhythm Possible Left atrial enlargement Borderline ECG When c ompared with ECG of 30-AUG-2007 10:03, T wave amplitude has decreased in Lateral leads Code Status & VTE Plan Code Status CODE: FULL VTE: SCDS, Heparin 5000 units subq Q12 Supervising Physician Co-Signing Physician Notes I personally saw and examined the patient. I verified all goss points and agree with CARIE Cardozo with the following exceptions and/or additions: 61 year old female who presents to the ER with 4 days history of diarrhea and ARLET. GI stool PCR positive for salmonella. No known immunosuppression. O/E HS1+2, no murmurs, Ches CTAB, Abdo SNT, BS hyperactive A/P Salmonella diarrhea - start Levaquin 500mg IV for 5-7 days given severity of illness causing ARLET and need for hospitalization PG Care Time/CCT Total # of Minutes Spent Total Time Spent with Patient: Total time spent is greater than 50% in coordination of care (as documented) at patient's floor/unit and/or counseling patient: Coding Level of Care Code 04354 Initial Inpt Care Lvl 3 Diagnoses Diarrhea R19.7 Hyponatremia E87.1 Hypokalemia E87.6 ARLET (acute kidney injury) N17.9 Leukopenia D72.819 Headache R51.9
[2021-09-20 14:59] LABS: Appearance Urine Clear (Clear); Bilirubin Urine Negative (Negative); Blood Urine Negative (Negative); Color Urine Yellow; Glucose Urine UA Negative (Negative); Ketones Urine Negative (Negative); Leukocyte Esterase Urine Negative (Negative); Nitrite Urine Negative (Negative); Protein Urine Negative (Negative); Specific Gravity Urine 1.004 (1.000-1.030); Urobilinogen Urine Negative (Negative); pH Urine 5.5 (4.5-7.5)
[2021-09-20 15:40] LABS: Procalcitonin 0.75 ng/ml (0-0.5)
[2021-09-20 15:48] LABS: Lyme Ab IgG w/WB Rflx Negative (Negative); Lyme Ab IgM w/WB Rflx Negative (Negative)
[2021-09-20 15:56] LABS: BUN Creatinine Ratio 25.8 (10-20); C Reactive Protein 22.77 mg/dl (0-0.5); Calcium 7.7 mg/dl (8.5-10.1); Est GFR (African American) 41.5 ml/min; Est GFR (Non-African American) 35.8 ml/min; Potassium 3.2 mmol/L (3.5-5.1)
--- NOTE | 2021-09-20 16:34 | CT Scan Report ---
CT SCAN OF THE ABDOMEN AND PELVIS WITHOUT IV CONTRAST CLINICAL HISTORY: Nausea and vomiting. Fever. Acute renal insufficiency. COMPARISON STUDY: Abdominal CT dated 11/08/2019 TECHNIQUE: CT scan of the abdomen and pelvis is performed from the lung bases to the proximal femora. Images are reviewed in the axial, sagittal, and coronal planes. IV contrast was not administered for this examination due to poor renal function. A dose lowering technique was utilized adhering to the principles of ALARA. CT DOSE: 326.37 mGy.cm FINDINGS: Lung bases: The heart is normal in size noting trace pericardial effusion. The lung bases are clear n oting dependent atelectasis. There is a tiny hiatal hernia. Liver: The unenhanced liver is normal in size, contour, and attenuation. There is no intrahepatic kye iary ductal dilatation. Gallbladder: There are gallstones with no CT evidence of acute cholecystitis. Spleen: Normal in size and attenuation. Pancreas: A 12 mm simple cystic lesion of the pancreatic body is unchanged from 2019 and typical for a sidebranch IPMN. The unenhanced pancreas is otherwise normal as visualized. Adrenal glands: Unremarkable. Kidneys: The unenhanced kidneys are normal in size and without hydronephrosis. There are no renal herlinda culi identified. There is no evidence of contour deforming renal mass lesion. Abdominal vasculature: The abdominal aorta is normal in course and caliber noting mild to moderate at herosclerotic calcification. Bowel: Liquid stool seen throughout the colon. There is mild colonic wall thickening and pericolonic infiltration. The appearance is typical for a nonspecific pancolitis. This is greatest involving the right:. The cecum is mildly distended measuring up to 7 cm in diameter. This is similar to previous. The appendix is not identified and reported surgically absent. Peritoneum: There is no intraperitoneal free air or abdominal ascites. There is a fat-containing umbi lical hernia. Lymphadenopathy: None. Pelvic viscera: The bladder is normal as visualized. The uterus is surgically absent. No adnexal lesi on is seen. Skeletal structures: The skeletal structures are osteopenic. There is mild lumbosacral spondylosis an d scoliosis. No lytic or blastic lesions are seen. IMPRESSION: 1. Findings are consistent with a nonspecific pancolitis. This is likely on an infectious or inflamma tory basis and clinical correlation will be required. 2. No bowel obstruction. 3. Cholelithiasis. 4. Additional findings as above. ACT 112: Negative or not required by law. Electronically signed by: Atul Murray M.D. 09/20/2021 4:32 PM
[2021-09-20] MEDS ORDERED: ACETAMINOPHEN 325 MG TAB PO PRN (17:18)
[2021-09-20] MEDS ORDERED: LACTATED RINGER'S 1,000 ML IV SCH (17:18)
[2021-09-20] MEDS ORDERED: ONDANSETRON INJ 2 MG/ML 2 ML VIAL IV PRN (17:18)
[2021-09-20] MEDS ORDERED: PROMETHAZINE HCL 12.5 MG in SODIUM CHLORIDE 0.9% 50 ML IV PRN (17:18)
[2021-09-20] MEDS ORDERED: DOXYCYCLINE HYCLATE 100 MG in DEXTROSE 5% 100 ML IV ONE (17:30)
[2021-09-20] MEDS ORDERED: POTASSIUM CHLORIDE CRTAB 20 MEQ TABCR PO ONE (18:00)
[2021-09-20 18:15] LABS: Campylobacter PCR Not Detected (NotDetected); Clostridium diff Toxin A/B PCR Not Detected (NotDetected); Enteroaggregative E.coli(EAEC) Not Detected (NotDetected); Enteropathogenic E.coli (EPEC) Not Detected (NotDetected); Enterotoxigenic E.coli (ETEC) Not Detected (NotDetected); Plesiomonas shigelloides PCR Not Detected (NotDetected); Shiga-like Toxin E.coli (STEC) Not Detected (NotDetected); Vibrio cholerae PCR Not Detected (NotDetected); Vibrio species PCR Not Detected (NotDetected); Yersinia enterocolitica PCR Not Detected (NotDetected)
[2021-09-20 18:16] LABS: Adenovirus F 40/41 PCR Not Detected (NotDetected); Astrovirus PCR Not Detected (NotDetected); Cryptosporidium PCR Not Detected (NotDetected); Cyclospora cayetanensis PCR Not Detected (NotDetected); Entamoeba histolytica PCR Not Detected (NotDetected); Giardia lamblia PCR Not Detected (NotDetected); Norovirus GI/GII PCR Not Detected (NotDetected); Rotavirus A PCR Not Detected (NotDetected); Sapovirus PCR Not Detected (NotDetected); Shigella/Enteroinvasive E.coli Not Detected (NotDetected)
[2021-09-20 18:19] LABS: Salmonella PCR DETECTED (NotDetected)
[2021-09-20 19:12] LABS: BUN Creatinine Ratio 25.4 (10-20); Calcium 8.7 mg/dl (8.5-10.1); Creatinine Clr Calc Pharmacy 45.8 ml/min; Est GFR (African American) 55.4 ml/min; Est GFR (Non-African American) 47.8 ml/min; Potassium 3.4 mmol/L (3.5-5.1)
[2021-09-20] MEDS ORDERED: SUMAtriptan succinate 25 MG TAB PO ONE (20:15)
[2021-09-20] MEDS: DEXTROSE 5% 1,000 ML IV SCH (21:31)
[2021-09-20] MEDS: levoFLOXacin/D5W 500 MG/100 ML BAG IV SCH (21:32)
[2021-09-20] MEDS: HEPARIN SOD 5,000 UNIT/0.5 ML VIAL SQ SCH (21:33)
[2021-09-21 00:38] LABS: BUN Creatinine Ratio 27.5 (10-20); Calcium 8.6 mg/dl (8.5-10.1); Creatinine Clr Calc Pharmacy 61.3 ml/min; Est GFR (African American) 78.9 ml/min; Est GFR (Non-African American) 68.1 ml/min; Potassium 3.1 mmol/L (3.5-5.1)
[2021-09-21] MEDS: DEXTROSE 5% 1,000 ML IV SCH (05:46)
[2021-09-21] MEDS ORDERED: DOXYCYCLINE HYCLATE 100 MG in DEXTROSE 5% 100 ML IV SCH (06:00)
[2021-09-21 06:15] LABS: Basophils # (auto) 0.01 K/uL (0-0.2); Basophils % (auto) 0.4 %; Hemoglobin 14.2 g/dL (12.0-16.0); Lymphocytes # (auto) 0.35 K/uL (1.2-3.4); Lymphocytes % (auto) 13.1 %; Mean Corpuscular Hemoglobin 30.9 pg (25-34); Mean Corpuscular Hgb Conc 34.6 g/dL (32-36); Mean Corpuscular Volume 89.1 fL (80-100); Monocytes # (auto) 0.39 K/uL (0.11-0.59); Monocytes % (auto) 14.6 %; Neutrophils # (auto) 1.93 K/uL (1.4-6.5); Neutrophils % (auto) 71.9 %; Platelet Count 248 K/uL (130-400); RDW Coefficient of Variation 13.9 % (11.5-14.5); White Blood Count 2.68 K/uL (4.8-10.8)
[2021-09-21 06:21] LABS: BUN Creatinine Ratio 22.8 (10-20); Calcium 8.7 mg/dl (8.5-10.1); Creatinine Clr Calc Pharmacy 71.5 ml/min; Est GFR (African American) 93.6 ml/min; Est GFR (Non-African American) 80.8 ml/min; Magnesium 2.4 mg/dl (1.7-2.4); Potassium 3.1 mmol/L (3.5-5.1)
--- NOTE | 2021-09-21 08:16 | Electrocardiogram Report ---
Test Reason : Blood Pressure : / mmHG Vent. Rate : 072 BPM Atrial Rate : 072 BPM P-R Int : 176 ms QRS Dur : 082 ms QT Int : 406 ms P-R-T Axes : 045 031 053 degrees QTc Int : 444 ms Normal sinus rhythm Left atrial enlargement Borderline ECG When compared with ECG of 30-AUG-2007 10:03, No significant change Confirmed by Prashanth Montoya ([id number]) on 09/21/2021 8:15:46 AM Referred By: Jessy Rangel Confirmed By:Prashanth Montoya
[2021-09-21] MEDS: HEPARIN SOD 5,000 UNIT/0.5 ML VIAL SQ SCH ×2 (08:33→20:15)
[2021-09-21] MEDS: POTASSIUM CHLORIDE CRTAB 20 MEQ TABCR PO SCH (08:33)
[2021-09-21] MEDS ORDERED: POTASSIUM CHLORIDE CRTAB 20 MEQ TABCR PO STA (08:39)
[2021-09-21] MEDS: LACTATED RINGER'S 1,000 ML IV SCH ×2 (08:55→17:19)
[2021-09-21] MEDS: PANTOprazole 40 MG in SYRINGE 0 ML IV SCH (11:25)
[2021-09-21 11:40] LABS: A calco-baum cmplx NotReported Not Detected (NotDetected); Bact fragilis Not Reported Not Detected (NotDetected); C auris Not Reported Not Detected (NotDetected); CTX-M Resistant Gene Not Detected (NotDetected); Calbicans Not Reported Not Detected (NotDetected); Candida glabrata Not Reported Not Detected (NotDetected); Candida krusei Not Reported Not Detected (NotDetected); Cneoformans/gatti Not Reported Not Detected (NotDetected); Cparapsilosis Not Reported Not Detected (NotDetected); Ctropicalis Not Reported Not Detected (NotDetected); E cloacae compx Not Reported Not Detected (NotDetected); Efaecalis Not Reported Not Detected (NotDetected); Efaecium Not Reported Not Detected (NotDetected); Enterobacterales DETECTED (NotDetected); Enterobacterales Not Reported DETECTED (NotDetected); Escherichia coli Not Reported Not Detected (NotDetected); H influenzae Not Reported Not Detected (NotDetected); IMP Resistant Gene Not Detected (NotDetected); K aerogenes Not Reported Not Detected (NotDetected); KPC Resistant Gene Not Detected (NotDetected); Koxytoca Not Reported Not Detected (NotDetected); Kpneumoniae grp Not Reported Not Detected (NotDetected); Lmonocyt Not Reported Not Detected (NotDetected); N meningitidis Not Reported Not Detected (NotDetected); NDM Resistant Gene Not Detected (NotDetected); OXA 48 Like Resistant Gene Not Detected (NotDetected); P aeruginosa Not Reported Not Detected (NotDetected); Proteus spp Not Reported Not Detected (NotDetected); Salmonella spp Not Reported DETECTED (NotDetected); Smarcescens Not Reported Not Detected (NotDetected); Staph lugdunensis Not Reported Not Detected (NotDetected); Staph spp. Not Reported Not Detected (NotDetected); Staphaureus Not Reported Not Detected (NotDetected); Staphepi Not Reported Not Detected (NotDetected); Stenmaltophilia Not Reported Not Detected (NotDetected); Strep agal(GrpB) Not Reported Not Detected (NotDetected); Strep pneum Not Reported Not Detected (NotDetected); Strep pyog (GrpA) Not Reported Not Detected (NotDetected); Strep spp Not Reported Not Detected (NotDetected); VIM Resistant Gene Not Detected (NotDetected); mcr-1 Colistin Resistant Gene Not Detected (NotDetected)
[2021-09-21 11:57] LABS: Salmonella species DETECTED (NotDetected)
--- NOTE | 2021-09-21 14:36 | Hospitalist Progress Note ---
Date of Service September 21, 2021 Assessment & Plan (1) Salmonella enteritis: Plan: Patient with 4 day history of diarrhea, n/v resulting in hypovolemia, electrolyte disturbances, and ARLET - Symptoms appeared to have started following food ingestion- with +Salmonella in stool PCR and also now with Salmonella bacteremia Dehydration improving with IVF resuscitation and lytes replacement, but still with a lot of watery,nonbloody stool CT abd/pel with pancolitis nausea resolved -continue Levaquin x 7-10 day course -change IVFs from D5W to LR 150mL/hr -would NOT give antidiarrheals -repeat BCxs this evening to ensure sterility (2) Leukopenia: Plan: remains, with absolute lymphopenia Lyme, Anaplasmosis negative -checked peripheral smear--> no dysplastic features. Likely consistent with renal failure -follow CBC (3) Salmonella bacteremia: Plan: as above (4) Hyponatremia: Plan: At this time history most consistent with decrease in oral solute intake and free water loss - symptomatic with headache-now resolved Na 124 on admission, now up to 135 after IVF hydration. Ur Osm and Ur Na c/w hypovolemia -continue IVFs in form of LR for ongoing GI losses -follow BMP in AM (5) Hypokalemia: Plan: Secondary to decrease oral intake with stool losses replace with KCl 60 meq po this AM follow BMP, Mag in AM (6) ARLET (acute kidney injury): Plan: pre-renal, with elevated BUN/lapper ratio>[address] abd/pel with colitis, no obstruction Now resolved with IVF hydration follow BMP (7) Headache: Plan: now resolved 2/2 hypovolemia, hyponatremia - CT scan in EMD without acute pathology - without fevers, without encephalopathy, and without seizure (8) Pancreatic cyst: Plan: 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 No abd pain, no further nausea or vomiting. Headache is now resolved. Still a little lightheaded with walking to the toilet. Denies CP, SOB. Tele with NSR, rates 70s Review of Systems Review of Systems: All systems reviewed & are unremarkable except as noted in HPI & below Physical Exam Constitutional: WD/WN, vitals as above Eyes: + anicteric sclerae ENMT: external ear and nose normal, oropharynx normal Neck: trachea midline, no thyromegaly Respiratory: normal respiratory effort, lungs clear to auscultation Cardiovascular: RRR, no murmur, no edema Chest (Breasts): Chest: normal inspection of chest Gastrointestinal (Abdomen): normal bowel sounds, soft, nontender, no hepatosplenomegaly Musculoskeletal: Extremities: extremities normal to inspection; no cyanosis and no clubbing Skin: no rashes, warm and dry Neurologic: moves all extremities and awake; no focal motor deficits Psychiatric: A+Ox3, euthymic affect Lymphatic: no lymphedema Results & Data Results & Data ([facility]) Vital Signs (Past 12 Hours) Vital Signs Temp Pulse Pulse Resp BP Pulse Ox 09/21/21 13:53 75 09/21/21 12:46 36.3 C L 84 18 131/82 97 09/21/21 08:47 37.4 C 87 18 120/83 96 09/21/21 03:03 36.9 C 77 18 115/72 97 Laboratory Results 09/21/21 09/21/21 09/20/21 Range/Units 05:26 05:26 23:16 WBC 2.68 L (4.8-10.8) K/uL RBC 4.60 (4.2-5.4) M/uL Hgb 14.2 (12.0-16.0) g/dL Hct 41.0 (37-47) % MCV 89.1 (80-100) fL MCH 30.9 (25-34) pg MCHC 34.6 (32-36) g/dL RDW Std Deviation 46.0 (36.4-46.3) fL RDW Coeff of Aby 13.9 (11.5-14.5) % Plt Count 248 (130-400) K/uL MPV 10.0 (7.4-10.4) fL Immature Gran % (Auto) 0.0 % Neut % (Auto) 71.9 % Lymph % (Auto) 13.1 % [place] % (Auto) 14.6 % Eos % (Auto) 0.0 % Baso % (Auto) 0.4 % Neut # (Auto) 1.93 (1.4-6.5) K/uL Lymph # (Auto) 0.35 L (1.2-3.4) K/uL [place] # (Auto) 0.39 (0.11-0.59) K/uL Eos # (Auto) 0.00 (0-0.5) K/uL Baso # (Auto) 0.01 (0-0.2) K/uL Immature Gran # (Auto) 0.00 (0.00-0.02) K/uL Absolute Nucleated RBC 0.00 (0-0) K/uL Nucleated RBC % (auto) 0.0 % Peripher Smr Path Cons Sodium 135 L 133 L (136-145) mmol/L Potassium 3.1 L 3.1 L (3.5-5.1) mmol/L Chloride 103 102 (98-107) mmol/L Carbon Dioxide 23 22 (21-32) mmol/L Anion Gap 9 9 (3-11) BUN 18 25 H (6-23) mg/dl Creatinine 0.79 0.91 D (0.6-1.2) mg/dl Est Cr Clr Drug Dosing 71.5 61.3 ml/min Est GFR ( Amer) 93.6 78.9 ml/min Est GFR (Non-Af Amer) 80.8 68.1 ml/min BUN/Creatinine Ratio 22.8 H 27.5 H (10-20) Glucose 105 H 146 H (70-99(Fasting)) mg/dl Osmolality (280-300) mOsm/kg Lactate (0.4-2.0) mmol/L Calcium 8.7 8.6 (8.5-10.1) mg/dl Magnesium 2.4 (1.7-2.4) mg/dl C-Reactive Protein (0-0.5) mg/dl Procalcitonin (0-0.5) ng/ml Urine Color Urine Appearance (Clear) Urine pH (4.5-7.5) Ur Specific Vanderbilt (1.000-1.030) Urine Protein (Negative) Urine Glucose (UA) (Negative) Urine Ketones (Negative) Urine Blood (Negative) Urine Nitrite (Negative) Urine Bilirubin (Negative) Urine Urobilinogen (Negative) Ur Leukocyte Esterase (Negative) Urine Osmolality (500-800) mOsm/kg Ur Random Sodium mmol/L Stl C. cayetanensis PCR (NotDetected) Stool Rotavirus A PCR (NotDetected) Stl Adenov F 40/41 PCR (NotDetected) Stool Astrovirus (PCR) (NotDetected) Stool Campylobacter PCR (NotDetected) Stl C. diff Tox A/B PCR (NotDetected) Stool Cryptosporidium PCR (NotDetected) Stl E.coli Shiga Tox PCR (NotDetected) Stl Enterotoxigenic E PCR (NotDetected) Stool EPEC (PCR) (NotDetected) Stool EAEC (PCR) (NotDetected) Stl E. histolytica PCR (NotDetected) Stool Giardia Lamblia PCR (NotDetected) Stool Salmonella PCR (NotDetected) Stool Sapovirus (PCR) (NotDetected) Stl P. shigelloides PCR (NotDetected) Stl Shigella/EIEC PCR (NotDetected) St Y.enterocolitica PCR (NotDetected) Stool Vibrio (PCR) (NotDetected) Stl Vibrio cholerae PCR (NotDetected) Stl Norovirus GI/GII PCR (NotDetected) Anaplasma Smear A. phagocytophilum DNA Babesia Smear Lyme Disease IgG Ab (Negative) Lyme Disease IgM Ab (Negative) Enterobacterales (PCR) (NotDetected) Salmonella spp. (PCR) (NotDetected) mcr-1 Colistin Res Gene PCR (NotDetected) blaIMP Car res Gene PCR (NotDetected) KPC-Carbap Res Gene PCR (NotDetected) blaNDM Car Res Gene PCR (NotDetected) OXA-48 Carbapenem Resis Gene (PCR) (NotDetected) blaVIM Car Res Gene PCR (NotDetected) CTX-M Gene Resistance (PCR) (NotDetected) Bld Cult ID Panel PCR (NotDetected) 09/20/21 09/20/21 09/20/21 Range/Units 18:23 16:31 14:47 WBC (4.8-10.8) K/uL RBC (4.2-5.4) M/uL Hgb (12.0-16.0) g/dL Hct (37-47) % MCV (80-100) fL MCH (25-34) pg MCHC (32-36) g/dL RDW Std Deviation (36.4-46.3) fL RDW Coeff of Aby (11.5-14.5) % Plt Count (130-400) K/uL MPV (7.4-10.4) fL Immature Gran % (Auto) % Neut % (Auto) % Lymph % (Auto) % [place] % (Auto) % Eos % (Auto) % Baso % (Auto) % Neut # (Auto) (1.4-6.5) K/uL Lymph # (Auto) (1.2-3.4) K/uL [place] # (Auto) (0.11-0.59) K/uL Eos # (Auto) (0-0.5) K/uL Baso # (Auto) (0-0.2) K/uL Immature Gran # (Auto) (0.00-0.02) K/uL Absolute Nucleated RBC (0-0) K/uL Nucleated RBC % (auto) % Peripher Smr Path Cons Sodium 135 L (136-145) mmol/L Potassium 3.4 L (3.5-5.1) mmol/L Chloride 102 (98-107) mmol/L Carbon Dioxide 24 (21-32) mmol/L Anion Gap 9 (3-11) BUN 31 H (6-23) mg/dl Creatinine 1.22 H D (0.6-1.2) mg/dl Est Cr Clr Drug Dosing 45.8 ml/min Est GFR ( Amer) 55.4 ml/min Est GFR (Non-Af Amer) 47.8 ml/min BUN/Creatinine Ratio 25.4 H (10-20) Glucose 96 (70-99(Fasting)) mg/dl Osmolality (280-300) mOsm/kg Lactate (0.4-2.0) mmol/L Calcium 8.7 (8.5-10.1) mg/dl Magnesium (1.7-2.4) mg/dl C-Reactive Protein (0-0.5) mg/dl Procalcitonin (0-0.5) ng/ml Urine Color Urine Appearance (Clear) Urine pH (4.5-7.5) Ur Specific [place]bilt (1.000-1.030) Urine Protein (Negative) Urine Glucose (UA) (Negative) Urine Ketones (Negative) Urine Blood (Negative) Urine Nitrite (Negative) Urine Bilirubin (Negative) Urine Urobilinogen (Negative) Ur Leukocyte Esterase (Negative) Urine Osmolality (500-800) mOsm/kg Ur Random Sodium 19 mmol/L Stl C. cayetanensis PCR Not Detected (NotDetected) Stool Rotavirus A PCR Not Detected (NotDetected) Stl Adenov F 40/41 PCR Not Detected (NotDetected) Stool Astrovirus (PCR) Not Detected (NotDetected) Stool Campylobacter PCR Not Detected (NotDetected) Stl C. diff Tox A/B PCR Not Detected (NotDetected) Stool Cryptosporidium PCR Not Detected (NotDetected) Stl E.coli Shiga Tox PCR Not Detected (NotDetected) Stl Enterotoxigenic E PCR Not Detected (NotDetected) Stool EPEC (PCR) Not Detected (NotDetected) Stool EAEC (PCR) Not Detected (NotDetected) Stl E. histolytica PCR Not Detected (NotDetected) Stool Giardia Lamblia PCR Not Detected (NotDetected) Stool Salmonella PCR DETECTED A* (NotDetected) Stool Sapovirus (PCR) Not Detected (NotDetected) Stl P. shigelloides PCR Not Detected (NotDetected) Stl Shigella/EIEC PCR Not Detected (NotDetected) St Y.enterocolitica PCR Not Detected (NotDetected) Stool Vibrio (PCR) Not Detected (NotDetected) Stl Vibrio cholerae PCR Not Detected (NotDetected) Stl Norovirus GI/GII PCR Not Detected (NotDetected) Anaplasma Smear A. phagocytophilum DNA Babesia Smear Lyme Disease IgG Ab (Negative) Lyme Disease IgM Ab (Negative) Enterobacterales (PCR) (NotDetected) Salmonella spp. (PCR) (NotDetected) mcr-1 Colistin Res Gene PCR (NotDetected) blaIMP Car res Gene PCR (NotDetected) KPC-Carbap Res Gene PCR (NotDetected) blaNDM Car Res Gene PCR (NotDetected) OXA-48 Carbapenem Resis Gene (PCR) (NotDetected) blaVIM Car Res Gene PCR (NotDetected) CTX-M Gene Resistance (PCR) (NotDetected) Bld Cult ID Panel PCR (NotDetected) 06/09/20/21 09/20/21 Range/Units 14:47 14:47 14:38 WBC (4.8-10.8) K/uL RBC (4.2-5.4) M/uL Hgb (12.0-16.0) g/dL Hct (37-47) % MCV (80-100) fL MCH (25-34) pg MCHC (32-36) g/dL RDW Std Deviation (36.4-46.3) fL RDW Coeff of Aby (11.5-14.5) % Plt Count (130-400) K/uL MPV (7.4-10.4) fL Immature Gran % (Auto) % Neut % (Auto) % Lymph % (Auto) % [place] % (Auto) % Eos % (Auto) % Baso % (Auto) % Neut # (Auto) (1.4-6.5) K/uL Lymph # (Auto) (1.2-3.4) K/uL [place] # (Auto) (0.11-0.59) K/uL Eos # (Auto) (0-0.5) K/uL Baso # (Auto) (0-0.2) K/uL Immature Gran # (Auto) (0.00-0.02) K/uL Absolute Nucleated RBC (0-0) K/uL Nucleated RBC % (auto) % Peripher Smr Path Cons Sodium (136-145) mmol/L Potassium (3.5-5.1) mmol/L Chloride (98-107) mmol/L Carbon Dioxide (21-32) mmol/L Anion Gap (3-11) BUN (6-23) mg/dl Creatinine (0.6-1.2) mg/dl Est Cr Clr Drug Dosing ml/min Est GFR ( Amer) ml/min Est GFR (Non-Af Amer) ml/min BUN/Creatinine Ratio (10-20) Glucose (70-99(Fasting)) mg/dl Osmolality 280 (280-300) mOsm/kg Lactate (0.4-2.0) mmol/L Calcium (8.5-10.1) mg/dl Magnesium (1.7-2.4) mg/dl C-Reactive Protein (0-0.5) mg/dl Procalcitonin (0-0.5) ng/ml Urine Color Yellow Urine Appearance Clear (Clear) Urine pH 5.5 (4.5-7.5) Ur Specific [place] 1.004 (1.000-1.030) Urine Protein Negative (Negative) Urine Glucose (UA) Negative (Negative) Urine Ketones Negative (Negative) Urine Blood Negative (Negative) Urine Nitrite Negative (Negative) Urine Bilirubin Negative (Negative) Urine Urobilinogen Negative (Negative) Ur Leukocyte Esterase Negative (Negative) Urine Osmolality 128 L (500-800) mOsm/kg Ur Random Sodium mmol/L Stl C. cayetanensis PCR (NotDetected) Stool Rotavirus A PCR (NotDetected) Stl Adenov F 40/41 PCR (NotDetected) Stool Astrovirus (PCR) (NotDetected) Stool Campylobacter PCR (NotDetected) Stl C. diff Tox A/B PCR (NotDetected) Stool Cryptosporidium PCR (NotDetected) Stl E.coli Shiga Tox PCR (NotDetected) Stl Enterotoxigenic E PCR (NotDetected) Stool EPEC (PCR) (NotDetected) Stool EAEC (PCR) (NotDetected) Stl E. histolytica PCR (NotDetected) Stool Giardia Lamblia PCR (NotDetected) Stool Salmonella PCR (NotDetected) Stool Sapovirus (PCR) (NotDetected) Stl P. shigelloides PCR (NotDetected) Stl Shigella/EIEC PCR (NotDetected) St Y.enterocolitica PCR (NotDetected) Stool Vibrio (PCR) (NotDetected) Stl Vibrio cholerae PCR (NotDetected) Stl Norovirus GI/GII PCR (NotDetected) Anaplasma Smear A. phagocytophilum DNA Babesia Smear Lyme Disease IgG Ab (Negative) Lyme Disease IgM Ab (Negative) Enterobacterales (PCR) (NotDetected) Salmonella spp. (PCR) (NotDetected) mcr-1 Colistin Res Gene PCR (NotDetected) blaIMP Car res Gene PCR (NotDetected) KPC-Carbap Res Gene PCR (NotDetected) blaNDM Car Res Gene PCR (NotDetected) OXA-48 Carbapenem Resis Gene (PCR) (NotDetected) blaVIM Car Res Gene PCR (NotDetected) CTX-M Gene Resistance (PCR) (NotDetected) Bld Cult ID Panel PCR (NotDetected) 09/20/21 09/20/21 09/20/21 Range/Units 14:38 14:38 14:38 WBC (4.8-10.8) K/uL RBC (4.2-5.4) M/uL Hgb (12.0-16.0) g/dL Hct (37-47) % MCV (80-100) fL MCH (25-34) pg MCHC (32-36) g/dL RDW Std Deviation (36.4-46.3) fL RDW Coeff of Aby (11.5-14.5) % Plt Count (130-400) K/uL MPV (7.4-10.4) fL Immature Gran % (Auto) % Neut % (Auto) % Lymph % (Auto) % [place] % (Auto) % Eos % (Auto) % Baso % (Auto) % Neut # (Auto) (1.4-6.5) K/uL Lymph # (Auto) (1.2-3.4) K/uL [place] # (Auto) (0.11-0.59) K/uL Eos # (Auto) (0-0.5) K/uL Baso # (Auto) (0-0.2) K/uL Immature Gran # (Auto) (0.00-0.02) K/uL Absolute Nucleated RBC (0-0) K/uL Nucleated RBC % (auto) % Peripher Smr Path Cons Sodium 131 L (136-145) mmol/L Potassium 3.2 L (3.5-5.1) mmol/L Chloride 97 L (98-107) mmol/L Carbon Dioxide 23 (21-32) mmol/L Anion Gap 11 (3-11) BUN 40 H (6-23) mg/dl Creatinine 1.55 H D (0.6-1.2) mg/dl Est Cr Clr Drug Dosing 36.0 ml/min Est GFR ( Amer) 41.5 ml/min Est GFR (Non-Af Amer) 35.8 ml/min BUN/Creatinine Ratio 25.8 H (10-20) Glucose 101 H (70-99(Fasting)) mg/dl Osmolality (280-300) mOsm/kg Lactate (0.4-2.0) mmol/L Calcium 7.7 L D (8.5-10.1) mg/dl Magnesium (1.7-2.4) mg/dl C-Reactive Protein 22.77 H (0-0.5) mg/dl Procalcitonin 0.75 H (0-0.5) ng/ml Urine Color Urine Appearance (Clear) Urine pH (4.5-7.5) Ur Specific [place] (1.000-1.030) Urine Protein (Negative) Urine Glucose (UA) (Negative) Urine Ketones (Negative) Urine Blood (Negative) Urine Nitrite (Negative) Urine Bilirubin (Negative) Urine Urobilinogen (Negative) Ur Leukocyte Esterase (Negative) Urine Osmolality (500-800) mOsm/kg Ur Random Sodium mmol/L Stl C. cayetanensis PCR (NotDetected) Stool Rotavirus A PCR (NotDetected) Stl Adenov F 40/41 PCR (NotDetected) Stool Astrovirus (PCR) (NotDetected) Stool Campylobacter PCR (NotDetected) Stl C. diff Tox A/B PCR (NotDetected) Stool Cryptosporidium PCR (NotDetected) Stl E.coli Shiga Tox PCR (NotDetected) Stl Enterotoxigenic E PCR (NotDetected) Stool EPEC (PCR) (NotDetected) Stool EAEC (PCR) (NotDetected) Stl E. histolytica PCR (NotDetected) Stool Giardia Lamblia PCR (NotDetected) Stool Salmonella PCR (NotDetected) Stool Sapovirus (PCR) (NotDetected) Stl P. shigelloides PCR (NotDetected) Stl Shigella/EIEC PCR (NotDetected) St Y.enterocolitica PCR (NotDetected) Stool Vibrio (PCR) (NotDetected) Stl Vibrio cholerae PCR (NotDetected) Stl Norovirus GI/GII PCR (NotDetected) Anaplasma Smear A. phagocytophilum DNA Pending Babesia Smear Lyme Disease IgG Ab Negative (Negative) Lyme Disease IgM Ab Negative (Negative) Enterobacterales (PCR) (NotDetected) Salmonella spp. (PCR) (NotDetected) mcr-1 Colistin Res Gene PCR (NotDetected) blaIMP Car res Gene PCR (NotDetected) KPC-Carbap Res Gene PCR (NotDetected) blaNDM Car Res Gene PCR (NotDetected) OXA-48 Carbapenem Resis Gene (PCR) (NotDetected) blaVIM Car Res Gene PCR (NotDetected) CTX-M Gene Resistance (PCR) (NotDetected) Bld Cult ID Panel PCR (NotDetected) 09/20/21 09/20/21 09/20/21 Range/Units 14:38 14:38 11:25 WBC (4.8-10.8) K/uL RBC (4.2-5.4) M/uL Hgb (12.0-16.0) g/dL Hct (37-47) % MCV (80-100) fL MCH (25-34) pg MCHC (32-36) g/dL RDW Std Deviation (36.4-46.3) fL RDW Coeff of Aby (11.5-14.5) % Plt Count (130-400) K/uL MPV (7.4-10.4) fL Immature Gran % (Auto) % Neut % (Auto) % Lymph % (Auto) % [place] % (Auto) % Eos % (Auto) % Baso % (Auto) % Neut # (Auto) (1.4-6.5) K/uL Lymph # (Auto) (1.2-3.4) K/uL [place] # (Auto) (0.11-0.59) K/uL Eos # (Auto) (0-0.5) K/uL Baso # (Auto) (0-0.2) K/uL Immature Gran # (Auto) (0.00-0.02) K/uL Absolute Nucleated RBC (0-0) K/uL Nucleated RBC % (auto) % Peripher Smr Path Cons Sodium (136-145) mmol/L Potassium (3.5-5.1) mmol/L Chloride (98-107) mmol/L Carbon Dioxide (21-32) mmol/L Anion Gap (3-11) BUN (6-23) mg/dl Creatinine (0.6-1.2) mg/dl Est Cr Clr Drug Dosing ml/min Est GFR ( Amer) ml/min Est GFR (Non-Af Amer) ml/min BUN/Creatinine Ratio (10-20) Glucose (70-99(Fasting)) mg/dl Osmolality (280-300) mOsm/kg Lactate 1.1 (0.4-2.0) mmol/L Calcium (8.5-10.1) mg/dl Magnesium (1.7-2.4) mg/dl C-Reactive Protein (0-0.5) mg/dl Procalcitonin (0-0.5) ng/ml Urine Color Urine Appearance (Clear) Urine pH (4.5-7.5) Ur Specific [place] (1.000-1.030) Urine Protein (Negative) Urine Glucose (UA) (Negative) Urine Ketones (Negative) Urine Blood (Negative) Urine Nitrite (Negative) Urine Bilirubin (Negative) Urine Urobilinogen (Negative) Ur Leukocyte Esterase (Negative) Urine Osmolality (500-800) mOsm/kg Ur Random Sodium mmol/L Stl C. cayetanensis PCR (NotDetected) Stool Rotavirus A PCR (NotDetected) Stl Adenov F 40/41 PCR (NotDetected) Stool Astrovirus (PCR) (NotDetected) Stool Campylobacter PCR (NotDetected) Stl C. diff Tox A/B PCR (NotDetected) Stool Cryptosporidium PCR (NotDetected) Stl E.coli Shiga Tox PCR (NotDetected) Stl Enterotoxigenic E PCR (NotDetected) Stool EPEC (PCR) (NotDetected) Stool EAEC (PCR) (NotDetected) Stl E. histolytica PCR (NotDetected) Stool Giardia Lamblia PCR (NotDetected) Stool Salmonella PCR (NotDetected) Stool Sapovirus (PCR) (NotDetected) Stl P. shigelloides PCR (NotDetected) Stl Shigella/EIEC PCR (NotDetected) St Y.enterocolitica PCR (NotDetected) Stool Vibrio (PCR) (NotDetected) Stl Vibrio cholerae PCR (NotDetected) Stl Norovirus GI/GII PCR (NotDetected) Anaplasma Smear See Comment A. phagocytophilum DNA Babesia Smear See Comment Lyme Disease IgG Ab (Negative) Lyme Disease IgM Ab (Negative) Enterobacterales (PCR) DETECTED A (NotDetected) Salmonella spp. (PCR) DETECTED A (NotDetected) mcr-1 Colistin Res Gene PCR Not Detected (NotDetected) blaIMP Car res Gene PCR Not Detected (NotDetected) KPC-Carbap Res Gene PCR Not Detected (NotDetected) blaNDM Car Res Gene PCR Not Detected (NotDetected) OXA-48 Carbapenem Resis Gene (PCR) Not Detected (NotDetected) blaVIM Car Res Gene PCR Not Detected (NotDetected) CTX-M Gene Resistance (PCR) Not Detected (NotDetected) Bld Cult ID Panel PCR See PCR Comment (NotDetected) PG Care Time/CCT Total # of Minutes Spent Total Time Spent with Patient: Total time spent is greater than 50% in coordination of care (as documented) at patient's floor/unit and/or counseling patient: Coding Level of Care Code 15680 Subseq Hosp Care Lvl 3 Diagnoses Leukopenia D72.819 Hyponatremia E87.1 Hypokalemia E87.6 ARLET (acute kidney injury) N17.9 Headache R51.9 Salmonella bacteremia R78.81 Salmonella enteritis A02.0 Pancreatic cyst K86.2
[2021-09-21 15:56] LABS: Appearance Urine Clear (Clear); Bilirubin Urine Negative (Negative); Blood Urine Negative (Negative); Color Urine Yellow; Glucose Urine UA Negative (Negative); Ketones Urine Negative (Negative); Leukocyte Esterase Urine Negative (Negative); Nitrite Urine Negative (Negative); Protein Urine Negative (Negative); Specific Gravity Urine 1.004 (1.000-1.030); Urobilinogen Urine Negative (Negative)
[2021-09-21] MEDS: levoFLOXacin/D5W 500 MG/100 ML BAG IV SCH (20:14)
[2021-09-22] MEDS: LACTATED RINGER'S 1,000 ML IV SCH ×3 (00:02→17:20)
[2021-09-22 06:58] LABS: Basophils # (auto) 0.03 K/uL (0-0.2); Basophils % (auto) 1.1 %; Eosinophils # (auto) 0.02 K/uL (0-0.5); Eosinophils % (auto) 0.7 %; Hematocrit (blood only) 37.7 % (37-47); Hemoglobin 12.7 g/dL (12.0-16.0); Immature Granulocytes # (auto) 0.03 K/uL (0.00-0.02); Immature Granulocytes % (auto) 1.1 %; Lymphocytes # (auto) 0.93 K/uL (1.2-3.4); Lymphocytes % (auto) 34.6 %; Mean Corpuscular Hemoglobin 31.1 pg (25-34); Mean Corpuscular Hgb Conc 33.7 g/dL (32-36); Mean Corpuscular Volume 92.2 fL (80-100); Mean Platelet Volume 9.8 fL (7.4-10.4); Monocytes # (auto) 0.42 K/uL (0.11-0.59); Monocytes % (auto) 15.6 %; Neutrophils # (auto) 1.26 K/uL (1.4-6.5); Neutrophils % (auto) 46.9 %; Platelet Count 224 K/uL (130-400); RDW Coefficient of Variation 13.9 % (11.5-14.5); RDW Standard Deviation 47.3 fL (36.4-46.3); Red Blood Count 4.09 M/uL (4.2-5.4); White Blood Count 2.69 K/uL (4.8-10.8)
[2021-09-22 07:24] LABS: BUN Creatinine Ratio 12.5 (10-20); Calcium 8.6 mg/dl (8.5-10.1); Creatinine Clr Calc Pharmacy 101.3 ml/min; Est GFR (African American) 116.6 ml/min; Est GFR (Non-African American) 100.6 ml/min; Potassium 3.5 mmol/L (3.5-5.1)
[2021-09-22] MEDS ORDERED: POTASSIUM CHLORIDE CRTAB 20 MEQ TABCR PO STA (08:15)
[2021-09-22] MEDS: HEPARIN SOD 5,000 UNIT/0.5 ML VIAL SQ SCH ×2 (08:36→19:57)
[2021-09-22] MEDS: POTASSIUM CHLORIDE CRTAB 20 MEQ TABCR PO SCH (08:40)
[2021-09-22] MEDS: PANTOprazole 40 MG in SYRINGE 0 ML IV SCH (11:18)
[2021-09-22] MEDS ORDERED: SIMETHICONE 80 MG CHEW PO PRN (16:53)
--- NOTE | 2021-09-22 17:12 | Hospitalist Progress Note ---
Date of Service September 22, 2021 Assessment & Plan (1) Salmonella enteritis: Plan: Patient presents with 4 day history of diarrhea, n/v resulting in hypovolemia, electrolyte disturbances, and ARLET - Symptoms appeared to have started following food ingestion- with +Salmonella in stool PCR and also now with Salmonella bacteremia Dehydration now much improved with IVF resuscitation and lytes replacement -watery,nonbloody stool has slowed down quite a bit CT abd/pel with pancolitis nausea resolved -continue Levaquin x 10 day course given severe disease, bacteremia -decrease IVFs to LR 70mL/hr -adv diet to low fiber as she cannot have dairy and full liquids diet includes dairy -would NOT give antidiarrheals -repeat BCxs this evening to ensure sterility-NGTD -add simethicone as needed for gas (2) Leukopenia: Plan: remains, with absolute lymphopenia Lyme, Anaplasmosis negative -checked peripheral smear--> no dysplastic features. Likely consistent with renal failure -follow CBC (3) Salmonella bacteremia: Plan: as above if repeat BCxs remain no growth by tomorrow, can dc to home on po Levaquin (4) Hyponatremia: Plan: At this time history most consistent with decrease in oral solute intake and free water loss - symptomatic with headache-now resolved Na 124 on admission, now up to 142 after IVF hydration. Ur Osm and Ur Na c/w hypovolemia -continue IVFs but decrease to LR 70mL/hr -follow BMP in AM (5) Hypokalemia: Plan: Secondary to decrease oral intake with stool losses Now much improved with replacement and improved po intake replace with KCl 60 meq po this AM follow BMP, Mag in AM (6) ARLET (acute kidney injury): Plan: pre-renal, with elevated BUN/carpenter and joiner ratio>[address] abd/pel with colitis, no obstruction Now resolved with IVF hydration follow BMP (7) Headache: Plan: now resolved 2/2 hypovolemia, hyponatremia - CT scan in EMD without acute pathology - without fevers, without encephalopathy, and without seizure (8) Pancreatic cyst: Plan: 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 Likely dc to home tomorrow if BCs remain no growth Admission and Anticipated Discharge Date Admission Date: September 20, 2021 Subjective Pt feels like her diarrhea has slowed down. SHe is tolerating some clear liquids. Has some gas pains at times but no significant abd pain. No SOB or CP. Does feel like she's getting a little "puffy" around her eyes. No nausea. Had 2 BMs since early AM, both w/ mucus and green watery stool, no blood. Tele with NSR, SB, rates 50-80s Review of Systems Review of Systems: All systems reviewed & are unremarkable except as noted in HPI & below Physical Exam Constitutional: WD/WN, vitals as above Eyes: + anicteric sclerae Neck: trachea midline, no thyromegaly Respiratory: normal respiratory effort, lungs clear to auscultation Cardiovascular: RRR, no murmur, no edema Chest (Breasts): Chest: normal inspection of chest Gastrointestinal (Abdomen): normal bowel sounds, soft, nontender, no hepatosplenomegaly (except very mild lower abd TTP w/o guarding or rebound) Musculoskeletal: Extremities: extremities normal to inspection; no cyanosis and no clubbing Skin: no rashes, warm and dry Neurologic: moves all extremities and awake; no focal motor deficits Psychiatric: A+Ox3, euthymic affect Lymphatic: no lymphedema Results & Data Results & Data ([facility]) Vital Signs (Past 12 Hours) Vital Signs Temp Pulse Pulse Resp BP Pulse Ox 09/22/21 15:32 36.5 C 57 L 18 160/95 H 99 09/22/21 14:54 61 09/22/21 11:28 36.8 C 60 17 137/83 96 09/22/21 10:45 50 L 09/22/21 07:48 36.8 C 97 H 18 119/74 97 09/22/21 05:09 61 Laboratory Results 09/22/21 09/22/21 Range/Units 06:28 06:28 WBC 2.69 L (4.8-10.8) K/uL RBC 4.09 L (4.2-5.4) M/uL Hgb 12.7 (12.0-16.0) g/dL Hct 37.7 (37-47) % MCV 92.2 (80-100) fL MCH 31.1 (25-34) pg MCHC 33.7 (32-36) g/dL RDW Std Deviation 47.3 H (36.4-46.3) fL RDW Coeff of Aby 13.9 (11.5-14.5) % Plt Count 224 (130-400) K/uL MPV 9.8 (7.4-10.4) fL Immature Gran % (Auto) 1.1 % Neut % (Auto) 46.9 % Lymph % (Auto) 34.6 % Cuming % (Auto) 15.6 % Eos % (Auto) 0.7 % Baso % (Auto) 1.1 % Neut # (Auto) 1.26 L (1.4-6.5) K/uL Lymph # (Auto) 0.93 L (1.2-3.4) K/uL Cuming # (Auto) 0.42 (0.11-0.59) K/uL Eos # (Auto) 0.02 (0-0.5) K/uL Baso # (Auto) 0.03 (0-0.2) K/uL Immature Gran # (Auto) 0.03 H (0.00-0.02) K/uL Sodium 142 (136-145) mmol/L Potassium 3.5 (3.5-5.1) mmol/L Chloride 111 H (98-107) mmol/L Carbon Dioxide 26 (21-32) mmol/L Anion Gap 5 (3-11) BUN 7 (6-23) mg/dl Creatinine 0.56 L (0.6-1.2) mg/dl Est Cr Clr Drug Dosing 101.3 ml/min Est GFR ( Amer) 116.6 ml/min Est GFR (Non-Af Amer) 100.6 ml/min BUN/Creatinine Ratio 12.5 (10-20) Glucose 89 (70-99(Fasting)) mg/dl Calcium 8.6 (8.5-10.1) mg/dl Magnesium 2.0 (1.7-2.4) mg/dl PG Care Time/CCT Total # of Minutes Spent Total Time Spent with Patient: Total time spent is greater than 50% in coordination of care (as documented) at patient's floor/unit and/or counseling patient: Coding Level of Care Code 01633 Subseq Hosp Care Lvl 2 Diagnoses Salmonella enteritis A02.0 Leukopenia D72.819 Salmonella bacteremia R78.81 Hyponatremia E87.1 Hypokalemia E87.6 ARLET (acute kidney injury) N17.9 Headache R51.9 Pancreatic cyst K86.2
[2021-09-22] MEDS: levoFLOXacin/D5W 500 MG/100 ML BAG IV SCH (19:56)
[2021-09-23 08:18] LABS: Basophils # (auto) 0.03 K/uL (0-0.2); Basophils % (auto) 0.7 %; Eosinophils # (auto) 0.09 K/uL (0-0.5); Eosinophils % (auto) 2.2 %; Hemoglobin 12.3 g/dL (12.0-16.0); Immature Granulocytes # (auto) 0.12 K/uL (0.00-0.02); Immature Granulocytes % (auto) 2.9 %; Lymphocytes # (auto) 1.27 K/uL (1.2-3.4); Lymphocytes % (auto) 30.7 %; Mean Corpuscular Hemoglobin 30.4 pg (25-34); Mean Corpuscular Hgb Conc 33.2 g/dL (32-36); Mean Corpuscular Volume 91.6 fL (80-100); Mean Platelet Volume 9.7 fL (7.4-10.4); Monocytes # (auto) 0.55 K/uL (0.11-0.59); Monocytes % (auto) 13.3 %; Neutrophils # (auto) 2.08 K/uL (1.4-6.5); Neutrophils % (auto) 50.2 %; Platelet Count 230 K/uL (130-400); RDW Coefficient of Variation 14.1 % (11.5-14.5); RDW Standard Deviation 47.6 fL (36.4-46.3); Red Blood Count 4.04 M/uL (4.2-5.4); White Blood Count 4.14 K/uL (4.8-10.8)
[2021-09-23] MEDS: HEPARIN SOD 5,000 UNIT/0.5 ML VIAL SQ SCH (08:23)
[2021-09-23] MEDS: POTASSIUM CHLORIDE CRTAB 20 MEQ TABCR PO SCH (08:23)
[2021-09-23 08:38] LABS: BUN Creatinine Ratio 15.3 (10-20); Calcium 8.5 mg/dl (8.5-10.1); Est GFR (African American) 114.7 ml/min; Est GFR (Non-African American) 98.9 ml/min; Magnesium 1.7 mg/dl (1.7-2.4); Potassium 3.7 mmol/L (3.5-5.1)
[2021-09-23] MEDS ORDERED: MAGNESIUM SULFATE / D5W 1 GM/100 ML BAG IV ONE (08:45)
[2021-09-23] MEDS: LACTATED RINGER'S 1,000 ML IV SCH (09:10)
--- NOTE | 2021-09-23 11:07 | Discharge Summary ---
Date of Service September 23, 2021 Admission HPI Per Admitting Provider 61 YOF with medical history of: Lyme disease, altitude sickness, basal cell carcinoma/squamous cell carcinoma of the skin, DGD. Patient comes to the EMD today for complaints of N/V/D and headache associated with dizziness that has been on going for past 4 days. Patient states that on Monday the patient was out power-washing the house and deck with mold and water, Monday she ate some ham and egg whites, and then started to develop n/v/diarrhea approx 2-3 hours after eating. Her stools have mostly been water and initially were brown and then changed to light green sat-into Monday. She has been trying to drink but about 20-30 minutes after drinking she becomes nauseated and either vomits or has diarrhea. Her abdominal pain is mostly in the lower quadrant but she refers to it as just with the gurgling before diarrheal episode. She also endorses a headache at the top of her head that just got worse this morning, which is why she came to EMD as well as she got dizzy going up the steps to go the bathroom yesterday evening. There has not been any blood or mucous in the stools. In the EMD the patient had routine labs performed and CT scan of her head for her headache. Her BMP returns with hyponatremia to 124 and hypochloridemia. She is also noted with increase in her BUN and CRANKSHAFT STRAIGHTENER to 50/2.49, hypokalemia. Her WBC is mildly leukopenic. Patient has history of Lyme disease back in 2019, and she r eports that she feels maday like that at this time but without the myalgias. She endorses that she pulls ticks off her all the time. Will send anaplasmosis and tick labs as well as start her on Doxycycline. Will admit for IV fluids and electrolyte management. COVID test on admission is: NEGATIVE, this was also NEGATIVE as outpatient at the end of last week. Principal Diagnosis Salmonella enteritis and bacteremia, ARLET, hyponatremia, hypokalemia, severe dehydration Discharge Exam Constitutional WD/WN, vitals as above Eyes + anicteric sclerae ENMT external ear and nose normal, oropharynx normal Neck trachea midline, no thyromegaly Respiratory normal respiratory effort, lungs clear to auscultation Cardiovascular RRR, no murmur, no edema Chest (Breasts) Chest: normal inspection of chest Gastrointestinal (Abdomen) normal bowel sounds, soft, nontender, no hepatosplenomegaly (except very mild lower abd TTP w/o guarding or rebound) Musculoskeletal Extremities: extremities normal to inspection; no cyanosis and no clubbing Skin no rashes, warm and dry Neurologic moves all extremities and awake; no focal motor deficits Psychiatric A+Ox3, euthymic affect Lymphatic no lymphedema Discharge Data Allergies Allergy/AdvReac Type Severity Reaction Status Date / Time lactose AdvReac Gastrointestinal Unverified 09/20/21 15:43 Upset Consultations 09/20/21 12:46 ED Decision to Admit Stat Ordered Studies 09/20/21 10:56 CT head/brain wo con Stat 09/20/21 13:14 CT abd pelvis wo con Stat Hospital Course (1) Salmonella enteritis: Patient presents with 4 day history of diarrhea, n/v resulting in hypovolemia, electrolyte disturbances, and ARLET - Symptoms appeared to have started following food ingestion- with +Salmonella in stool PCR and also now with Salmonella bacteremia Dehydration now resolved with IVF resuscitation and lytes replacement -watery,nonbloody stool has now resolved--> only having small amounts of brown mucus per rectum by time of discharge CT abd/pel with pancolitis nausea resolved, jairo low fiber diet -continue Levaquin x 14 day course given severe disease, bacteremia -repeat BCxs to ensure sterility-NGTD at 36 hour josefina--> will follow after discharge -no evidence of systemic disease otherwise but gave precautions to watch for symptoms of such after dischrge (2) Leukopenia: with absolute lymphopenia, now resolved Lyme, Anaplasmosis negative -checked peripheral smear--> no dysplastic features. Likely consistent with renal failure (3) Salmonella bacteremia: as above dc on po Levaquin 14 day course total (4) Hyponatremia: At this time history most consistent with decrease in oral solute intake and free water loss - symptomatic with headache-now resolved Na 124 on admission, now up to 141 after IVF hydration. Ur Osm and Ur Na c/w hypovolemia (5) Hypokalemia: Secondary to decrease oral intake with stool losses Now resolved with replacement and improved po intake give 1 gram IV mag today (6) ARLET (acute kidney injury): pre-renal, with elevated BUN/javascript web developer ratio>[address] abd/pel with colitis, no obstruction Now resolved with IVF hydration (7) Headache: now resolved 2/2 hypovolemia, hyponatremia - CT scan in EMD without acute pathology - without fevers, without encephalopathy, and without seizure (8) Pancreatic cyst: side branch IPMN noted on CT abd follow as outpt DVT proph-heparin SQ Dispo-much improved, stable for dc to home Total Time Total Time Spent Total Time Spent (In Minutes): 35 min Discharge Plan Discharge Items Patient Disposition: Home - Self-Care Reason For Visit: DEHYDRATION,REF BY DOC Discharge Diagnosis: Salmonella enteritis and bacteremia, Acute kidney injury, hypokalemia, severe dehydration, hyponatremia Condition on Discharge: Good Activity: As commented below Lifting: Gradually increase as tolerated Bathing: No limitations Exercise/Sports: Gradually increase as tolerated Non-emergency contact: Primary Care Provider Call non-emergency contact if: you have any medication questions, your symptoms worsen, your pain is not controlled, your pain is worsening, your pain is unusual for you, your pain is concerning for you, you have a fever and your temperature is above 101 Follow-up/Referrals: Jessy Rangel, [Primary Care Provider] - (Follow up within 1 week.) Diet: Low Fiber Diet Comment: low fiber diet x 2 weeks Addtl Attending Provider Instructions: Please finish out 11 more days of the antibiotic called levofloxacin. If you have worsening diarrhea, abdominal pain, fevers, shortness of breath or cough, bone pain, neck pain, headache, or any other acute concerns, please call your PCP or return to the hospital. Try to stay well hydrated after you leave the hospital. Drink plenty of fluids and eat a soft diet for the next 2 weeks. Incidentally noted on your CT scan of your abdomen was a small cyst on your pancreas. Dr. Rangel can follow this over time with repeat imaging of your abdomen to make sure it is not growing in size. Pending Studies at Discharge: Yes (Repeat blood cultures-no growth to date) Stand-Alone Forms: My [employer], Smoking Cessation Medications and DC Order Prescriptions: New levofloxacin 500 mg tablet 500 mg PO DAILY Qty: 11 RF: 0 Discharge Orders: Discharge Order (Routine); Ordered 09/23/21 Ordered By: Anita Fowler Admission Data Admit Date/Time: 09/20/21 14:06 Attending Provider: Anita Fowler Admit Provider: Anthony Wayne Primary Care Provider: Jessy Rangel Other Providers: Anthony Wayne Coding Level of Care Code D/C DAY MANAGEMENT >30 MINS Diagnoses Salmonella enteritis A02.0 Leukopenia D72.819 Salmonella bacteremia R78.81 Hyponatremia E87.1 Hypokalemia E87.6 ARLET (acute kidney injury) N17.9 Headache R51.9 Pancreatic cyst K86.2
== END 2021-09-23 12:23 | disposition home or self-care (01) | DRG 372 ==
LOC: ED 10:43 → SUATTDRO 14:06 → EDINP 14:06 → 2S 18:10 → 3W 09-22 18:32

== ENCOUNTER 2025-02-14 12:46 | Observation (INO) ==
--- NOTE | 2025-02-14 13:22 | Emergency Department Note ---
History of Present Illness General Chief complaint: GI Assessment Stated complaint: RECTAL PROLAPSE, CANT HAVE BOWEL MOVEMENT Time Seen by Provider: 02/14/25 13:20 History of Present Illness Maximum Pain Intensity: 5 This is a 65-year-old female with history of hysterectomy who presents to the emergency department via private vehicle with complaints of "rectal prolapse". Patient does note history of sphincter contraction issue about 15 years ago. No bowel movement since Monday, notes trouble urinating. Patient notes that she does have to place manual pressure on the rectal region to be able to urinate. Minimal lower abdominal discomfort as well. No fever. No chills. No nausea or vomiting. Home Medications Medication Instructions Recorded Confirmed Type methocarbamol 500 mg tablet 500 mg PO QID PRN BACK SPASMS #30 02/03/25 02/14/25 Rx tabs Allergies Allergy/AdvReac Type Severity Reaction Status Date / Time No Known Drug Allergies Allergy Mild Unverified 10/30/24 09:40 lactose AdvReac Intermediate Gastrointestinal Verified 10/30/24 09:40 Upset Past Med/Surg History Problem List (Updated 02/15/25 @ 00:58 by Ovi Markham PA-C) Abdominal pain, lower (Acute) Acute urinary retention (Acute) Pain, rectum (Acute) Fecal impaction in rectum (Acute) Osteoarthritis Vitamin D deficiency Pancreatic cyst Disc degeneration, lumbar Dysplastic nevus H/O carcinoma in situ of skin Herpes simplex type 1 infection History of basal cell carcinoma Approximately 5 years ago History of squamous cell carcinoma in situ of skin Approximately 5 years ago Lumbar radiculopathy Osteopenia Medical History EIC (epidermal inclusion cyst) (07/09/24) Nausea and vomiting after administration of anesthetic agent Hot flashes due to menopause Pancreatic cyst Osteopenia Osteoarthritis Lumbar radiculopathy Hx of squamous cell carcinoma Hx of basal cell carcinoma Disc degeneration, lumbar Kidney stones Hx of Salmonella infection Hx of colonic polyps Surgical History Hx of squamous cell carcinoma excision Hx of basal cell carcinoma excision Hx of cholecystectomy (11/2022) History of colonoscopy H/O local excision of skin lesion S/P vaginal hysterectomy S/P tubal ligation S/P appendectomy Family History Mother Pancreas cancer Cardiac pacemaker Cancer Father History of heart valve replacement Type 2 diabetes mellitus Hypertension Diabetes Heart disease Sister Melanoma Cancer Daughter Cancer Other No family history of adverse response to anesthesia Denies family history of Colon cancer Ovarian cancer Breast cancer Social History Smoking Status: Never smoker Second Hand Exposure: Yes (hx); Do You Dip or Chew Tobacco: No; Hx Alcohol Use: Yes Alcohol type: wine Alcohol Intake Frequency: 2-3 x/Week Hx Substance Use: No Preferred Language: Danish Communication Ability: Effective Visual Impairment: No Limitations Hearing Ability: Normal Delivery Table Operator Required: No Beliefs That Will Affect Care: None marital status: Current Living Situation: Spouse current occupational status: retired How many Children do You have: 2 How many Children do You have Comment: 2 biological children Feels Safe at Home: Yes Childhood Exposure to Second-Hand Smoke: Yes Diet: regular Diet Comment: regular caffeine: Yes during the past year weight has: remained stable Dental Care, Regularly: Yes Physical Activity Frequency: Daily Physical Activity Frequency Comment: walking Seatbelt Use: always Sunscreen Use: Yes Assistive Devices: Glasses Review of Systems A total of 10 systems reviewed and were otherwise negative Physical Exam Vital Signs Vital Signs - 24 hr 02/14/25 12:50 Temperature 36.6 C Temperature Source Temporal Artery Scan Pulse Rate 78 Respiratory Rate 18 Respiratory Effort / Characteristics Non-Labored Spontaneous Respiratory Depth Normal Respiratory Pattern Regular Blood Pressure 182/110 H Blood Pressure Mean 134 Blood Pressure Position Sitting Pulse Oximetry 97 Oxygen Delivery Method Room Air Sepsis Recent Fever Within 48 Hours No Sepsis New/Unexplained Change in Mental Status N/A Sepsis Action Taken by Nursing No Action Required VITAL SIGNS - Vital signs and nursing notes were reviewed. Stable and afebrile. GENERAL -65-year-old female appearing her stated age who is in no acute distress. Communicates well with provider and answers questions appropriately. SKIN - Without rashes. No meningeal or petechial rash. HEAD - NC/AT. EYES - Sclera anicteric. LUNGS - Chest wall symmetric without accessory muscle use, intercostals retractions, or central cyanosis. Normal vesicular breath sounds CTA B/L. No wheezes, rales, or rhonchi appreciated. CARDIAC - RRR ABDOMEN - Abdominal contour normal without pulsations or visible masses. BS normoactive all four quadrants. No tenderness, palpable masses, hepatosplenomegaly, or ascites noted. EXTREMITIES - No clubbing or peripheral cyanosis. +5/5 strength noted in UE/LE bilaterally. NEUROLOGIC - Cranial nerves grossly intact. PSYCH - alert, oriented and pleasant on exam RECTALverbal consent was obtained. Female RN present at bedside to tip scourer. Visual inspection of the rectal area shows a nonthrombosed hemorrhoid. No rectal prolapse seen. Course Administered Medications Enoxaparin Sodium (Enoxaparin Inj 40 Mg/0.4 Ml Syr) 40 mg SQ Q24H [facility] Stop: 03/16/25 19:44 Last Admin: 02/14/25 20:10 Dose: 40 mg Documented By: luis Dextrose/Sodium Chloride (D5w And 1/2nss) 1,000 mls @ 115 mls/hr IV .Q8H42M GISEL Stop: 02/17/25 19:39 Last Admin: 02/14/25 20:01 Dose: 115 mls/hr Documented By: luis Discontinued Medications Glycerin (Glycerin Adult 12 Supp/Box Supp) 1 supp DC NOW ONE Stop: 02/14/25 16:35 Last Admin: 02/14/25 17:22 Dose: Not Given Documented By: MMG Ioversol (Optiray 320 100ml) 94 ml IV ONCE ONE Stop: 02/14/25 15:34 Last Admin: 02/14/25 15:34 Dose: 94 ml Documented By: SAYDA Medical Decision Making Laboratory Data 02/14/25 13:40 02/14/25 13:40 Lab Results 02/14/25 02/14/25 Range/Units 13:40 16:44 WBC 7.78 (4.8-10.8) K/ul RBC 4.49 (4.20-5.40) M/uL Hgb 14.4 (12.0-16.0) g/dL Hct 41.4 (37.0-47.0) % MCV 92.2 (80.0-100.0) fL MCH 32.1 (25.0-34.0) pg MCHC 34.8 (32.0-36.0) g/dL RDW Std Deviation 43.3 (36.4-46.3) fL RDW Coeff of Aby 12.8 (11.5-14.5) % Plt Count 249 (130-400) K/uL MPV 10.1 (9.4-12.4) fL Immature Gran % (Auto) 0.3 % Neut % (Auto) 83.7 % Lymph % (Auto) 9.6 % Petroleum % (Auto) 5.1 % Eos % (Auto) 0.9 % Baso % (Auto) 0.4 % Neut # (Auto) 6.51 H (1.40-6.50) K/uL Lymph # (Auto) 0.75 L (1.20-3.40) K/uL Petroleum # (Auto) 0.40 (0.11-0.59) K/uL Eos # (Auto) 0.07 (0.00-0.50) K/uL Baso # (Auto) 0.03 (0.00-0.20) K/uL Immature Gran # (Auto) 0.02 (0.01-0.20) K/uL Sodium 143 (136-145) mmol/L Potassium 3.7 (3.5-5.1) mmol/L Chloride 107 (98-107) mmol/L Carbon Dioxide 27 (21-32) mmol/L Anion Gap 9 (3-11) BUN 15 (6-23) mg/dl Creatinine 0.74 (0.6-1.2) mg/dl Est Cr Clr Drug Dosing 74.5 ml/min eGFR 89.73 BUN/Creatinine Ratio 20.3 H (10-20) Glucose 102 H (70-99(Fasting)) mg/dl Calcium 9.0 (8.6-10.3) mg/dl Total Bilirubin 0.4 (0.2-1.0) mg/dl AST 19 (13-39) U/L ALT 19 (7-52) U/L Alkaline Phosphatase 76 (34-104) U/L Total Protein 6.9 (6.0-8.3) gm/dl Albumin 4.6 (3.4-5.0) gm/dl Globulin 2.3 L (2.5-4.0) gm/dl Albumin/Globulin Ratio 2.0 (0.9-2) Urine Color Yellow Urine Appearance Clear (Clear) Urine pH 6.5 (4.5-7.5) Ur Specific [place] 1.026 (1.000-1.030) Urine Protein Negative (Negative) Urine Glucose (UA) Negative (Negative) Urine Ketones Trace H (Negative) Urine Blood Negative (Negative) Urine Nitrite Negative (Negative) Urine Bilirubin Negative (Negative) Urine Urobilinogen Negative (Negative) Ur Leukocyte Esterase Negative (Negative) Urine Comment Imaging Data Radiologist's Impression: Abdomen/Pelvis CT 02/14/25 14:[address] WITH IV CONTRAST CT DOSE: 1130.8 mGy.cm HISTORY: lower abd pain, rectal prolapse, no BM TECHNIQUE: Multiaxial CT images of the abdomen and pelvis were performed following the IV administration of 90 cc of Optiray, A dose lowering technique was utilized adhering to the principles of ALARA. COMPARISON STUDY: 10/05/2022 FINDINGS: ABDOMEN: Gallbladder is surgically absent. Stable tiny cyst at the dome of the liver. Liver, spleen, and adrenal glands are otherwise unremarkable. There is a stable 1.7 cm cystic finding at the body of the pancreas. There are a few tiny cysts at the left kidney. There is no hydronephrosis bilaterally. No renal calculi. There are scattered atherosclerotic calcifications. No abdominal aortic aneurysm. Pelvis: Uterus is absent. No adnexal mass. Urinary bladder is nondistended. The rectum is prominently distended with stool. Otherwise there is moderate retained stool. There is mild sigmoid diverticulosis. No acute diverticulitis. No bowel inflammation or obstruction seen. No free fluid, free air, or abscess. No enlarged adenopathy. Osseous structures: There is lower lumbar degenerative disc disease. There is mild scoliosis. IMPRESSION: 1. Prominent distention of the rectum with stool. No other acute findings seen. 2. Otherwise as described. ACT 112: Negative or not required by law. The above report was generated using voice recognition software. It may contain grammatical, syntax or spelling errors. Electronically signed by: Sunil Torres M.D. 02/14/2025 3:52 PM [facility] Narrative Patient was seen and evaluated as above in room D05. Review was performed of triage nursing notes and vital signs. I did review pertinent previous visits and patient history. After obtaining a thorough history and physical examination the above work up was performed. Patient presents to us today for evaluation of lower abdominal pain and is concerned she may have a rectal prolapse. On my assessment there is no rectal prolapse. Options of care were discussed with the patient. IV access was established. Labs were drawn. There is no leukocytosis or concerning anemia. No evidence of kidney or liver failure. Urinalysis does not suggest UTI. CT scan obtained of the abdomen/pelvis. Results as above. Prominent distention of the rectum with stool. No acute findings otherwise seen. I discussed this with the patient. She appears to also have trouble urinating. She cannot spontaneously void now I believe secondary to the mass effect from the stool ball. Options discussed and ultimately Keith catheter was placed. She was feeling less pressure with the bladder adequately drained. I did discuss the findings with GI, I spoke with Dr. Schaeffer. He did recommend rectal exam and attempted disimpaction. He did recommend holding off/utilization of great caution with any oral remedies such as GoLytely or MiraLAX prior to the disimpaction. I discussed this with the patient. Verbal consent was obtained after reviewing benefit versus risk of attempt disimpaction. Female present at bedside to Hali peter. The rectal region was lubricated with sterile jelly. A digit was gently advanced about 1 cm and there was significant contraction of the sphincter. Patient did note some discomfort was developing therefore no further rectal exam was performed. Additionally, noting the significantly contracted rectal tone, will avoid any attempted disimpaction. Patient notes that the only time she believes the rectal region is not with significant traction is well under sedation such as with colonoscopy. I reached back out to GI and updated them on the findings. Dr. Schaeffer does recommend admission to the hospital. I discussed this with the hospitalist service. Please refer to further documentation regarding her stay. In the evaluation and treatment of this patient the following differential diagnoses were entertained: Constipation, diverticulitis, abscess, perforation, among others Impression & Plan Fecal impaction in rectum, Pain, rectum, Acute urinary retention, Abdominal pain, lower Discharge Plan Visit Data Chief Complaint: GI Assessment Stated Complaint: RECTAL PROLAPSE, CANT HAVE BOWEL MOVEMENT ED Provider: Len Hawkins ED Midlevel Provider: Ovi Markham Discharge Problem: Fecal impaction in rectum, Pain, rectum, Acute urinary retention, Abdominal pain, lower Patient Disposition: Admitted As Inpatient Condition: Good Discharge Instructions Interventions: ED Discharge Assessment Last Done: 02/14/25 18:31
[2025-02-14 14:06] LABS: Hematocrit (blood only) 41.4 % (37.0-47.0); Hemoglobin 14.4 g/dL (12.0-16.0); Immature Granulocytes # (auto) 0.02 K/uL (0.01-0.20); Immature Granulocytes % (auto) 0.3 %; Mean Corpuscular Hemoglobin 32.1 pg (25.0-34.0); Mean Corpuscular Volume 92.2 fL (80.0-100.0); Platelet Count 249 K/uL (130-400); RDW Standard Deviation 43.3 fL (36.4-46.3); Red Blood Count 4.49 M/uL (4.20-5.40); White Blood Count 7.78 K/ul (4.8-10.8)
[2025-02-14 14:25] LABS: Alanine Aminotransferase 19.0 U/L (7-52); Albumin Globulin Ratio 2.0 (0.9-2); Albumin Level 4.6 gm/dl (3.4-5.0); Alkaline Phosphatase 76.0 U/L (34-104); Anion Gap 9.0 (3-11); Bilirubin,Total 0.4 mg/dl (0.2-1.0); Blood Urea Nitrogen 15.0 mg/dl (6-23); Calcium 9.0 mg/dl (8.6-10.3); Carbon Dioxide 27.0 mmol/L (21-32); Chloride 107.0 mmol/L (98-107); Creatinine Clr Calc Pharmacy 74.5 ml/min; Globulin 2.3 gm/dl (2.5-4.0); Glucose 102.0 mg/dl (70-99(Fasting)); Potassium 3.7 mmol/L (3.5-5.1); Sodium 143.0 mmol/L (136-145); Total Protein 6.9 gm/dl (6.0-8.3)
[2025-02-14] MEDS: OPTIRAY 320 100ml IV ONE (15:34)
--- NOTE | 2025-02-14 15:55 | CT Scan Report ---
ABDOMEN AND PELVIS CT WITH IV CONTRAST CT DOSE: 1130.8 mGy.cm HISTORY: lower abd pain, rectal prolapse, no BM TECHNIQUE: Multiaxial CT images of the abdomen and pelvis were performed following the IV administrat ion of 90 cc of Optiray, A dose lowering technique was utilized adhering to the principles of ALARA. COMPARISON STUDY: 10/05/2022 FINDINGS: ABDOMEN: Gallbladder is surgically absent. Stable tiny cyst at the dome of the liver. Liver, spleen, and adrenal glands are otherwise unremarkable. There is a stable 1.7 cm cystic finding at the body of the pancreas. There are a few tiny cysts at the left kidney. There is no hydronephrosis bilaterally. No renal calculi. There are scattered atherosclerotic calcifications. No abdominal aortic aneurysm. Pelvis: Uterus is absent. No adnexal mass. Urinary bladder is nondistended. The rectum is prominently distended with stool. Otherwise there is moderate retained stool. There is mild sigmoid diverticulos is. No acute diverticulitis. No bowel inflammation or obstruction seen. No free fluid, free air, or a bscess. No enlarged adenopathy. Osseous structures: There is lower lumbar degenerative disc disease. There is mild scoliosis. IMPRESSION: 1. Prominent distention of the rectum with stool. No other acute findings seen. 2. Otherwise as described. ACT 112: Negative or not required by law. The above report was generated using voice recognition software. It may contain grammatical, syntax o r spelling errors. Electronically signed by: Sunil Torres M.D. 02/14/2025 3:52 PM
[2025-02-14 17:05] LABS: Appearance Urine Clear (Clear); Glucose Urine UA Negative (Negative)
[2025-02-14] MEDS: GLYCERIN ADULT 12 SUPP/BOX SUPP PR ONE (17:22)
--- NOTE | 2025-02-14 17:22 | History & Physical Report ---
Date of Service February 14, 2025 Assessment & Plan (1) Fecal impaction in rectum: Plan In summary this is a 65-year-old female who presents with rectal fecal impaction that was unable to be manually disimpacted in the emergency department Given the significant tone of the anal sphincter and inability to fully advance for digital fecal disimpaction, gastroenterology was consulted by the emergency department provider for further recommendations; they advised admission to the medical service for continued care At this time the patient is not able to tolerate manual disimpaction given significant pain in addition to inability to fully advance for adequate disimpaction; given the degree of sphincter tension and proximity of the patient's stool ball to the sphincter, an enema is unable to be administered and retained; considering were not able to adequately disimpact distally, we will not pursue additional oral medications to facilitate stool passage at this time Maintain n.p.o.; continue maintenance IV fluids with D5 half-normal saline at 150 mL/h Gastroenterology consulted for assistance with disimpaction given the complications previously described History of Present Illness Chief Complaint: Constipation Primary Care Provider: Jessy Rangel DO Ms. Green is a 65-year-old female whose active medical conditions include slow transit constipation with anal sphincter dysfunction/stricture, IPMN, osteoarthritis among other chronic medical conditions who presented to the [facility] due to progresive abdominal distention and significant constipation. The patient describes increasing difficulty over the past 7-10 days with stool passage, at times feeling as if she is having a "rectal prolapse". 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 Allergies Allergy/AdvReac Type Severity Reaction Status Date / Time No Known Drug Allergies Allergy Mild Unverified 10/30/24 09:40 lactose AdvReac Intermediate Gastrointestinal Verified 10/30/24 09:40 Upset Home Medications Medication Instructions Recorded Confirmed Type methocarbamol 500 mg tablet 500 mg PO QID PRN BACK SPASMS #30 02/03/25 02/14/25 Rx tabs Past Med/Surg History Problem List (Updated 02/14/25 @ 17:29 by Yasmani Marcus DO) Fecal impaction in rectum Osteoarthritis Vitamin D deficiency Pancreatic cyst Disc degeneration, lumbar Dysplastic nevus H/O carcinoma in situ of skin Herpes simplex type 1 infection History of basal cell carcinoma Approximately 5 years ago History of squamous cell carcinoma in situ of skin Approximately 5 years ago Lumbar radiculopathy Osteopenia Medical History EIC (epidermal inclusion cyst) (07/09/24) Nausea and vomiting after administration of anesthetic agent Hot flashes due to menopause Pancreatic cyst Osteopenia Osteoarthritis Lumbar radiculopathy Hx of squamous cell carcinoma Hx of basal cell carcinoma Disc degeneration, lumbar Kidney stones Hx of Salmonella infection Hx of colonic polyps Surgical History Hx of squamous cell carcinoma excision Hx of basal cell carcinoma excision Hx of cholecystectomy (11/2022) History of colonoscopy H/O local excision of skin lesion S/P vaginal hysterectomy S/P tubal ligation S/P appendectomy Family History Mother Pancreas cancer Cardiac pacemaker Cancer Father History of heart valve replacement Type 2 diabetes mellitus Hypertension Diabetes Heart disease Sister Melanoma Cancer Daughter Cancer Other No family history of adverse response to anesthesia Denies family history of Colon cancer Ovarian cancer Breast cancer Social History Smoking Status: Never smoker Second Hand Exposure: Yes (hx); Do You Dip or Chew Tobacco: No; Hx Alcohol Use: Yes Alcohol type: beer and wine Alcohol Intake Frequency: 2-3 x/Week Hx Substance Use: No Preferred Language: Turkmen Communication Ability: Effective Visual Impairment: No Limitations Hearing Ability: Normal Emission Specialist Required: No Beliefs That Will Affect Care: None marital status: Current Living Situation: Spouse current occupational status: retired How many Children do You have: 2 How many Children do You have Comment: 2 biological children Feels Safe at Home: Yes Childhood Exposure to Second-Hand Smoke: Yes Diet: regular Diet Comment: regular caffeine: Yes during the past year weight has: remained stable Dental Care, Regularly: Yes Physical Activity Frequency: Daily Physical Activity Frequency Comment: walking Seatbelt Use: always Sunscreen Use: Yes Assistive Devices: None Review of Systems Review of Systems: Review of constitutional, cardiovascular, pulmonary, gastrointestinal, genitourinary systems was unremarkable except for pertinent positive and negative findings discussed above Physical Exam Physical Exam: General: Adult female in mild discomfort associated with perianal heaviness/fullness Vital Signs: Reviewed Pulmonary: Symmetric chest wall excursion without restriction with comfortable respirations Cardiovascular: Regular rate and rhythm with right radial pulse 2+; no notable lower extremity edema Gastrointestinal: Soft, slightly distended with left lower quadrant and suprapubic discomfort with moderately deep palpation; no tenderness with percussion; bowel sounds with increased pitch and low-frequency Genitourinary: Keith catheter in place with approximately 150 mL of pale yellow urine without sediment Results & Data Results & Data Vital Signs (Past 12 Hours) Vital Signs Temp Pulse Resp BP Pulse Ox O2 Del Method 02/14/25 12:50 36.6 C 78 18 182/110 H 97 Room Air Diagnostic Findings Severe rectal stool impaction with approximately 8 cm to 9 cm dilation of the distal rectum Code Status & VTE Plan Code Status Full code VTE Prophylaxis Plan VTE Prophylaxis will be ordered: Yes PG Care Time/CCT Total # of Minutes Spent Total Time Spent with Patient: Total time spent is greater than 50% in coordination of care (as documented) at patient's floor/unit and/or counseling patient: Coding Level of Care Code 83650 INT INP/OBS CARE 40MIN Diagnoses Fecal impaction in rectum K56.41
[2025-02-14] MEDS: D5W AND 1/2NSS 1,000 ML IV SCH (20:01)
[2025-02-14] MEDS: ENOXAPARIN INJ 40 MG/0.4 ML SYR SQ SCH (20:10)
--- NOTE | 2025-02-15 07:49 | Hospitalist Progress Note ---
Date of Service February 15, 2025 Assessment & Plan (1) Fecal impaction in rectum: Plan In summary this is a 65-year-old female who presents with rectal fecal impaction that was unable to be manually disimpacted in the emergency department Patient underwent prolonged colonoscopy disimpaction of over two hours given the degree of impaction, desiccation, and stool accumulation; confirmed large rectocele during procedure and recommended to consult colorectal surgery for evaluation during hospitalization Clear liquid diet and regular miralax per Gastroenterology recommendations - Colorectal surgery consulted Admission and Anticipated Discharge Date Admission Date: February 14, 2025 Subjective Ms. Green is a 65-year-old female whose active medical conditions include slow transit constipation with anal sphincter dysfunction/stricture, IPMN, osteoarthritis among other chronic medical conditions who presented to the [facility] due to progresive abdominal distention and significant constipation. No acute overnight events Review of Systems Review of Systems: Review of constitutional, cardiovascular, pulmonary, gastrointestinal, genitourinary systems was unremarkable except for pertinent positive and negative findings discussed above Physical Exam Physical Exam: General: Adult female in mild discomfort associated with perianal heav iness/fullness Vital Signs: Reviewed Pulmonary: Symmetric chest wall excursion without restriction with comfortable respirations Cardiovascular: Regular rate and rhythm with right radial pulse 2+; no notable lower extremity edema Gastrointestinal: Soft, slightly distended with left lower quadrant and suprapubic discomfort with moderately deep palpation; no tenderness with percussion; bowel sounds with increased pitch and low-frequency Genitourinary: Keith catheter in place with approximately 150 mL of pale yellow urine without sediment Results & Data Results & Data Vital Signs (Past 12 Hours) Vital Signs Temp Pulse Resp BP Pulse Ox O2 Del Method 02/15/25 07:27 36.3 C L 62 16 146/86 H 94 Room Air 02/14/25 22:26 36.6 C 59 L 14 136/88 94 Room Air PG Care Time/CCT Total # of Minutes Spent Total Time Spent with Patient: Total time spent is greater than 50% in coordination of care (as documented) at patient's floor/unit and/or counseling patient: Coding Level of Care Code 02036 SUB INP/OBS CARE 2/35MIN Diagnoses Fecal impaction in rectum K56.41
--- NOTE | 2025-02-15 10:50 | Gastrointestinal Consultation ---
Date of Consultation February 15, 2025 Assessment & Plan (1) Fecal impaction in rectum: (2) Abdominal pain, lower: (3) Pelvic floor dysfunction in female: (4) Pain, rectum: (5) Pancreatic cyst: (6) Hx of colonic polyps: (7) S/P vaginal hysterectomy: Plan IMPRESSION: The patient is a 65-year-old with a history of hysterectomy secondary to uterine prolapse with known anal stenosis, suspected pelvic floor dysfunction presenting with fecal impaction. PLAN: -- Will arrange for colonoscopy under anesthesia today with endoscopic disimpaction -- Outpatient follow-up with urogynecology/pelvic floor physical therapy advised. Based on symptoms there may be a component of pelvic dyssynergy -- Consider follow-up with colorectal surgery for dilation of anal stenosis -- Maintain patient on MiraLAX daily titrated to benefit to avoid hard stools and recurrence of current symptoms -- Repeat colonoscopy for surveillance in 2028 given prior history of colorectal polyps -- Annual MRI imaging recommended for pancreatic cyst Thank you for the courtesy of this consultation. History of Present Illness Reason for Consultation: Fecal impaction, Attending Physician: Yasmani Marcus, History of Present Illness The patient is a very pleasant 65-year-old woman with a known history of anal sphincter/stricture, colon polyps, pelvic floor dysfunction, IPMN, nephrolithiasis, who presents today with the inability to have a bowel movement along with significant pressure in the rectum. The patient presented to the emergency department where she had CT imaging showing a distended rectum with stool. She does have a history of colonoscopy 02/27/[address] Vasquez showing an unremarkable exam to the terminal ileum. No significant stricture or stenosis was noted on that exam. Fecal disimpaction was attempted in the emergency department unsuccessfully due to severe patient discomfort. The patient continues to note a sensation of pressure in her rectum. She notes that whenever she attempts to have a bowel movement she gets a bulging out in the perineum causing further obstructive type symptoms. She denies any nausea, vomiting, odynophagia, dysphagia, early satiety or any unexplained weight loss. She does normally have regular bowel movements without hematochezia. She has a history of hysterectomy and does note that she has had dilation of her anal stricture in the past. Allergies Allergy/AdvReac Type Severity Reaction Status Date / Time No Known Drug Allergies Allergy Mild Unverified 10/30/24 09:40 lactose AdvReac Intermediate Gastrointestinal Verified 10/30/24 09:40 Upset Home Medications Medication Instructions Recorded Confirmed Type methocarbamol 500 mg tablet 500 mg PO QID PRN BACK SPASMS #30 02/03/25 02/14/25 Rx tabs Patient History Medical History EIC (epidermal inclusion cyst) (07/09/24) FINAL DIAGNOSIS in office procedure Dr. Razo Skin, abdomen, excision: - Heavily inflamed epidermal inclusion cyst Nausea and vomiting after administration of anesthetic agent following gallbladder surgery "may have been from the narcotic given, not sure" Hot flashes due to menopause Pancreatic cyst monitoring Osteopenia Osteoarthritis Lumbar radiculopathy "has gotten better" Hx of squamous cell carcinoma Hx of basal cell carcinoma Disc degeneration, lumbar Kidney stones remote history, young adult (20s), no sx Hx of Salmonella infection 08/2021 (hospitalized for 4 days) Hx of colonic polyps Surgical History Hx of squamous cell carcinoma excision Hx of basal cell carcinoma excision Hx of cholecystectomy (11/2022) History of colonoscopy H/O local excision of skin lesion S/P vaginal hysterectomy secondary to uterine prolapse S/P tubal ligation S/P appendectomy Family History Mother Pancreas cancer Cardiac pacemaker Cancer Father History of heart valve replacement Type 2 diabetes mellitus Hypertension Diabetes Heart disease Sister Melanoma Cancer Daughter Cancer Other No family history of adverse response to anesthesia Denies family history of Colon cancer Ovarian cancer Breast cancer Social History Smoking Status: Never smoker Second Hand Exposure: Yes (hx); Do You Dip or Chew Tobacco: No; Hx Alcohol Use: Yes Alcohol type: wine Alcohol Intake Frequency: 2-3 x/Week Hx Substance Use: No Preferred Language: Danish Communication Ability: Effective Visual Impairment: No Limitations Hearing Ability: Normal Call Center Team Leader Required: No Beliefs That Will Affect Care: None marital status: Current Living Situation: Spouse current occupational status: retired How many Children do You have: 2 How many Children do You have Comment: 2 biological children Feels Safe at Home: Yes Childhood Exposure to Second-Hand Smoke: Yes Diet: regular Diet Comment: regular caffeine: Yes during the past year weight has: remained stable Dental Care, Regularly: Yes Physical Activity Frequency: Daily Physical Activity Frequency Comment: walking Seatbelt Use: always Sunscreen Use: Yes Assistive Devices: Glasses Review of Systems Review of Systems: All systems reviewed & are unremarkable except as noted in HPI & below Physical Exam Constitutional: WD/WN, vitals as above ENMT: external ear and nose normal, oropharynx normal Respiratory: normal respiratory effort, lungs clear to auscultation Cardiovascular: RRR, no murmur, no edema Gastrointestinal (Abdomen): normal bowel sounds, soft, nontender, no hepa tosplenomegaly Rectal Exam: + hemorrhoids (Berry Picker (floor nurse) used for exam. Small hemorrhoids appreciated), + fecal impaction (Stool felt in the rectal vault) and + rectal tenderness The patient was brought to the toilet and asked to bear down for a bowel movement. Perineal bulging was noted. Neurologic: Alert and oriented x 3, nonfocal Results & Data Vital Signs (Past 12 Hours) Vital Signs Temp Pulse Resp BP Pulse Ox O2 Del Method 02/15/25 07:27 36.3 C L 62 16 146/86 H 94 Room Air PG Care Time/CCT Total # of Minutes Spent Total Time Spent with Patient: Total time spent is greater than 50% in coordination of care (as documented) at patient's floor/unit and/or counseling patient: [place] [address] INT INP/OBS CARE 3/75MIN Patient Type New History Expanded Problem Focused Exam Detailed Medical Decision Making High Complexity Diagnoses Fecal impaction in rectum K56.41 Abdominal pain, lower R10.30 Pelvic floor dysfunction in female M62.89 Pain, rectum K62.89 Pancreatic cyst K86.2 Hx of colonic polyps Z86.010 S/P vaginal hysterectomy Z90.710
[2025-02-15] MEDS ORDERED: LIDOCAINE 2% 2 ML VIAL/AMP(20MG/ML) INFIL ONE (11:23)
[2025-02-15] MEDS ORDERED: PROPOFOL IV EMULSION 10 MG/ML 20 ML VIAL IV ONE ×6 (11:23→14:28)
[2025-02-15] MEDS ORDERED: ONDANSETRON INJ 2 MG/ML 2 ML VIAL ONE (11:23)
[2025-02-15] MEDS ORDERED: MIDAZOLAM HCL 1 MG/ML 2ML VIAL ONE (11:23)
[2025-02-15] MEDS ORDERED: ATROPINE SULFATE 0.1 MG/ML 10ML SYR IV PRN (12:12)
[2025-02-15] MEDS ORDERED: ONDANSETRON INJ 2 MG/ML 2 ML VIAL IV PRN (12:12)
--- NOTE | 2025-02-15 12:12 | Anesthesiology Consultation ---
Date of Service February 15, 2025 Assessment & Plan Chart Review Chart Review: Acceptable Risk for Surgery Consults Requested none ASA ASA2 Proposed Anesthesia Anesthesia Type: MAC Risk / Benefits Reviewed With: PT / POA / Parent / Guardian, Accepts Plan and Informed Consent Obtained History Surgery Operation Date: 02/15/25 11:30 Proposed Procedures p Colonoscopy - Fermin Sharif MD Height/Weight Height: 5 ft 4 in Weight: 77.8 kg Allergies Allergy/AdvReac Type Severity Reaction Status Date / Time No Known Drug Allergies Allergy Mild Unverified 10/30/24 09:40 lactose AdvReac Intermediate Gastrointestinal Verified 10/30/24 09:40 Upset Medications Home Medications Medication Instructions Recorded Confirmed Last Taken methocarbamol 500 mg tablet 500 mg PO QID PRN BACK SPASMS #30 02/03/25 02/14/25 Unknown tabs Active Medications Generic Name Dose Route Start Last Admin Trade Name Freq PRN Reason Stop Dose Admin Enoxaparin Sodium 40 mg 02/14/25 19:45 02/14/25 20:10 Enoxaparin Inj 40 Mg/0.4 Ml Syr SQ 03/16/25 19:44 40 mg Q24H GISEL Administration Dextrose/Sodium Chloride 1,000 mls @ 115 mls/hr 02/14/25 19:40 02/15/25 04:40 D5w And 1/2nss IV 02/17/25 19:39 115 mls/hr .Q8H42M GISEL Administration Past Medical History Medical History EIC (epidermal inclusion cyst) (07/09/24) FINAL DIAGNOSIS in office procedure Dr. Razo Skin, abdomen, excision: - Heavily inflamed epidermal inclusion cyst Nausea and vomiting after administration of anesthetic agent following gallbladder surgery "may have been from the narcotic given, not sure" Hot flashes due to menopause Pancreatic cyst monitoring Osteopenia Osteoarthritis Lumbar radiculopathy "has gotten better" Hx of squamous cell carcinoma Hx of basal cell carcinoma Disc degeneration, lumbar Kidney stones remote history, young adult (20s), no sx Hx of Salmonella infection 08/2021 (hospitalized for 4 days) Hx of colonic polyps Past Family History Family History Mother Pancreas cancer Cardiac pacemaker Cancer Father History of heart valve replacement Type 2 diabetes mellitus Hypertension Diabetes Heart disease Sister Melanoma Cancer Daughter Cancer Other No family history of adverse response to anesthesia Denies family history of Colon cancer Ovarian cancer Breast cancer Past Surgical History Surgical History Hx of squamous cell carcinoma excision Hx of basal cell carcinoma excision Hx of cholecystectomy (11/2022) History of colonoscopy H/O local excision of skin lesion S/P vaginal hysterectomy secondary to uterine prolapse S/P tubal ligation S/P appendectomy Social History Smoking Status: Never smoker Do You Dip or Chew Tobacco: No Hx Alcohol Use: Yes Alcohol type: wine alcohol intake frequency: 0-2 drinks per day Alcohol Intake Frequency Comment: Pt states they have 1 drink per day Hx Substance Use: No substance use type: does not use Physical Exam Vital Signs Last Vital Signs Temp 36.3 C L 02/15/25 07:27 Pulse 62 02/15/25 07:27 Resp 16 02/15/25 07:27 BP 146/86 H 02/15/25 07:27 Pulse Ox 94 02/15/25 07:27 O2 Del Method Room Air 02/15/25 07:27 ENMT Thyromental Distance: < 3.5 Finger Breadths Mallampati Class: II Neck normal visual inspection Respiratory normal respiratory effort Auscultation: lungs clear to auscultation bilaterally Cardiovascular Rate/Rhythm: regular rate and regular rhythm Chest (Breasts) Chest: no pacemaker Musculoskeletal Spine: normal cervical ROM Neurologic moves all extremities Psychiatric Orientation: alert and oriented x 3 Testing Laboratory Results 02/14/25 13:40 02/14/25 13:40 Urine Color Yellow 02/14/25 16:44 Urine Appearance Clear (Clear) 02/14/25 16:44 Urine pH 6.5 (4.5-7.5) 02/14/25 16:44 Ur Specific [place] 1.026 (1.000-1.030) 02/14/25 16:44 Urine Protein Negative (Negative) 02/14/25 16:44 Urine Glucose (UA) Negative (Negative) 02/14/25 16:44 Urine Ketones Trace (Negative) H 02/14/25 16:44 Urine Nitrite Negative (Negative) 02/14/25 16:44 Ur Leukocyte Esterase Negative (Negative) 02/14/25 16:44
--- NOTE | 2025-02-15 15:49 | GI REPORT ---
Patient: JENNIFER RODGERS : 1960 Sex at : Female Age: 65 Years Procedure: Colonoscopy Date: 02/15/2025 Attending Physician: Fermin Sharif MD Referring MD: Referred Self; Yasmani Marcus DO Indications: - Fecal impaction - Rectal pain - Constipation Medications: - See the Anesthesia note for documentation of the administered medications Complications: - No immediate complications. Estimated Blood Loss: - Estimated blood loss: None. Procedure: - Prior to the procedure, a History and Physical was performed, and patient medications and allergies were reviewed. The patient's tolerance of previous anesthesia was also reviewed. The risks and benefits of the procedure and the sedation options and risks were discussed with the patient. All questions were answered, and informed consent was obtained. Prior Anticoagulants: The patient has taken no anticoagulant or antiplatelet agents. ASA Grade Assessment: II - A patient with mild systemic disease. After reviewing the risks and benefits, the patient was deemed in satisfactory condition to undergo the procedure. - The pediatric colonoscope was introduced through the anus and advanced to the splenic flexure for evaluation. this was the intended extent. - The colonoscopy was performed without difficulty. - No bowel preparation was given prior to the procedure. - The patient tolerated the procedure well. Findings: - External non-bleeding hemorrhoids were found during perianal exam. The hemorrhoids were small. - A large amount of semi-solid and solid stool was found in the rectum and in the sigmoid colon, making visualization difficult. Multiple methods were employed to relived stool impaction including piecemeal removal of stool by Stout net, fragmentation by snare, aggressive lavage, balloon sweep. These methods were employed for greater than 2 hours with removal of 80% of the stool in the rectal vault. - A large rectocele was found. Clear protrusion of the rectal wall is seen likely accounting for compaction of stool resulting in clinical presentation. - A moderate stenosis was found at the anus and was traversed. - Patchy mild inflammation characterized by erosions and erythema was found in the rectum. Erosions are suspected to be from stercoral pressure. Impression: - External non-bleeding hemorrhoids. - Stool in the rectum and in the sigmoid colon. - Multiple methods were employed to relived stool impaction including piecemeal removal of stool by Stout net, fragmentation by snare, aggressive lavage, balloon sweep. These methods were employed for greater than 2 hours with removal of 80% of the stool in the rectal vault. - Rectocele. - Clear protrusion of the rectal wall is seen likely accounting for compaction of stool resulting in clinical presentation. - Stricture at the anus. - Patchy mild inflammation was found in the rectum. - Erosions are suspected to be from stercoral pressure. - No specimens collected. Recommendation: - Full liquid diet today. - Miralax 1 capful (17 grams) in 8 ounces of water PO QID for 3 days. - Consultation with urogynecology or colorectal surgery for repair of rectocele is advised. Procedure Code(s): - 79232-90, Colonoscopy, flexible; diagnostic, including collection of specimen(s) by brushing or washing, when performed (separate procedure) Diagnosis Code(s): - K59.00, Constipation, unspecified - N81.6, Rectocele - K62.4, Stenosis of anus and rectum - K62.89, Other specified diseases of anus and rectum - K64.4, Residual hemorrhoidal skin tags CPT(R) - 2023 copyright [employer]. All Rights Reserved. The CPT codes, CCI edits and ICD codes generated are intended as suggestions and were generated based on input data. These codes are preliminary and upon plane tableman review may be revised to meet current compliance and payer requirements. The provider is responsible for the final determination of appropriate codes, and modifiers. Fermin Sharif MD This document has been electronically signed. Note Initiated:02/15/2025 Note Completed:02/15/2025 3:47 PM \\[email or web address]\Data\Provation\Results\LIVE\[id number]
[2025-02-15] MEDS: ACETAMINOPHEN 500 MG TAB PO PRN (16:37)
[2025-02-15 20:14] VITALS: RESP 16
[2025-02-16 07:05] VITALS: BP 134/85; PULSE 62; TEMP 97.5; O2SAT 93
--- NOTE | 2025-02-16 07:31 | Hospitalist Progress Note ---
Date of Service February 16, 2025 Assessment & Plan (1) Fecal impaction in rectum: Plan In summary this is a 65-year-old female who presents with rectal fecal impaction that was unable to be manually disimpacted in the emergency department Patient underwent prolonged colonoscopy disimpaction of over two hours given the degree of impaction, desiccation, and stool accumulation; confirmed large rectocele during procedure and recommended to consult colorectal surgery for evaluation during hospitalization Clear liquid diet and regular miralax per Gastroenterology recommendations - Colorectal surgery recommended outpatient follow up to discuss rectocele Admission and Anticipated Discharge Date Admission Date: February 15, 2025 Subjective Ms. Green is a 65-year-old female whose active medical conditions include slow transit constipation with anal sphincter dysfunction/stricture, IPMN, osteoarthritis among other chronic medical conditions who presented to the [facility] due to progresive abdominal distention and significant constipation. No acute overnight events Results & Data Results & Data Vital Signs (Past 12 Hours) Vital Signs Temp Pulse Resp BP Pulse Ox O2 Del Method 02/16/25 07:04 36.4 C L 62 16 134/85 93 Room Air 02/15/25 20:14 36.5 C 61 16 125/76 94 Room Air PG Care Time/CCT Total # of Minutes Spent Total Time Spent with Patient: Total time spent is greater than 50% in coordination of care (as documented) at patient's floor/unit and/or counseling patient: Coding Diagnoses Fecal impaction in rectum K56.41
--- NOTE | 2025-02-16 12:25 | Discharge Summary ---
Discharge Summary Date of Service February 16, 2025 Principal Dx & Hospital Course #1 = Principal Diagnosis (1) Fecal impaction in rectum: (2) Pelvic floor dysfunction in female: (3) Rectocele without uterine prolapse: Plan In summary this is a 65-year-old female who presents with rectal fecal impaction that was unable to be manually disimpacted in the emergency department Patient underwent prolonged colonoscopy disimpaction of over two hours given the degree of impaction, desiccation, and stool accumulation; recommend continued use of Mirilax, and close follow up with Gastroenterology as well as Colorectal surgery to evaluate rectocele Admission HPI Per Admitting Provider Ms. Green is a 65-year-old female whose active medical conditions include slow transit constipation with anal sphincter dysfunction/stricture, IPMN, osteoarthritis among other chronic medical conditions who presented to the [facility] due to progresive abdominal distention and significant constipation. The patient describes increasing difficulty over the past 7-10 days with stool passage, at times feeling as if she is having a "rectal prolapse". 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 Discharge Exam General: Adult female in mild discomfort associated with perianal heaviness/fullness Vital Signs: Reviewed Pulmonary: Symmetric chest wall excursion without restriction with comfortable respirations Cardiovascular: Regular rate and rhythm with right radial pulse 2+; no notable lower extremity edema Gastrointestinal: Soft, remains slightly sore in the left lower quadrant and suprapubically; no tenderness with percussion; bowel sounds with increased pitch and low-frequency Discharge Plan Discharge Items Patient Disposition: Home - Self-Care Reason For Visit: SEVERE CONSTIPATION WITH RECTAL IMPACTION Discharge Diagnosis: Severe constipation with rectal impaction // Rectocele Condition on Discharge: Good Activity: Per Instructions section Non-emergency contact: Primary Care Provider, Surgeon and Paraffin Plant Operator Call non-emergency contact if: your symptoms worsen Follow-up/Referrals: Jessy Rangel DO [Primary Care Provider] - Todd Garcia MD [Outside Practitioners] - (Rectocele with severe stool retention requiring colonoscopy disimpaction; evaluate for surgical intervention) Fermin Sharif MD [Physician] - (Continued care from recent hospitalization) Diet: Full liquid Fluids: 2000ml (8 cups) Addtl Attending Provider Instructions: You were admitted to [facility] for severe constipation impaction requiring disimpaction under anesthesia. With respect to your anal sphincter stenosis and the severity of impaction, evaluation under anesthesia with colonoscopy was performed on 02/15 without complication and approximately 80% of fecal retention was resolved. Was found during her surgery to have a large rectocele which was recommended to be assessed in the outpatient setting by colorectal surgery for possible surgical intervention. For continued prevention of recurrence we recommend taking MiraLAX 1 capful 3 times daily for 5 days, then twice daily for 5 days, then daily thereafter. Once taking MiraLAX once daily you may adjust the dose by increasing or decreasing by one half capful every 3 to 4 days to maintain 2-3 easily pass bowel movements daily. 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 Thank you for choosing [facility] as your healthcare provider. Pending Studies at Discharge: No Stand-Alone Forms: My [facility] Medications and DC Order Prescriptions: Discontinued methocarbamol 500 mg tablet 500 mg PO QID PRN (Reason: BACK SPASMS) Qty: 30 1RF Discharge Orders: Discharge Order (Routine); Ordered 02/16/25 Ordered By: Yasmani Marcus Admission Data Admit Date/Time: 02/15/25 16:05 Attending Provider: Yasmani Marcus Admit Provider: Yasmani Marcus Primary Care Provider: Jessy Rangel Other Providers: Fermin Sharif; Yasmani Marcus Other Interventions: Discharge Summary Assessment (RN) Last Done: 02/16/25 10:52 Hospital Stay Data Consultations 02/14/25 17:16 ED Decision to Admit Stat 02/14/25 19:40 Consult Gastroenterology Routine Procedures Performed Operation Date: 02/15/25 11:30 Actual Procedures p Colonoscopy in Operating Room(Not Applicable) - Fermin Sharif MD Diagnostic Imagining Performed 02/14/25 14:26 CT abd pelvis IV con only Stat Pending Results Patient Have Any Pending Studies at Discharge: No Discharge Instructions Given to Patient (Per Discharging Provider) You were admitted to [facility] for severe constipation impaction requiring disimpaction under anesthesia. With respect to your anal sphincter stenosis and the severity of impaction, evaluation under anesthesia with colonoscopy was performed on 02/15 without complication and approximately 80% of fecal retention was resolved. Was found during her surgery to have a large rectocele which was recommended to be assessed in the outpatient setting by colorectal surgery for possible surgical intervention. For continued prevention of recurrence we recommend taking MiraLAX 1 capful 3 times daily for 5 days, then twice daily for 5 days, then daily thereafter. Once taking MiraLAX once daily you may adjust the dose by increasing or decreasing by one half capful every 3 to 4 days to maintain 2-3 easily pass bowel movements daily. 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 Thank you for choosing [facility] as your healthcare provider. Total Time Total Time Spent Total Time Spent (In Minutes): I personally spent 70 minutes in today's discharge including bedside counselling, physical exam, medication reconciliation, and coordination of care with specialist consultation as well as referral upon discharge Coding Level of Care Code 04927 INP/OBS DISCH >30 MIN Diagnoses Fecal impaction in rectum K56.41 Pelvic floor dysfunction in female M62.89 Rectocele without uterine prolapse N81.6
--- NOTE | 2025-02-19 17:33 | Anesthesiology Progress Note ---
Date of Service February 19, 2025 Anesthesia Post Procedure Pain Intensity Rectal: Pain Intensity: 5 Transfer of Care Handoff Completed per policy Notes Mental Status: alert / awake / arousable Patient Amnestic to Procedure: Yes Nausea / Vomiting: adequately controlled Pain: adequately controlled Airway Patency, RR, SpO2: stable & adequate BP & HR: stable & adequate Hydration State: stable & adequate Anesthetic Complications: no major complications apparent
== END 2025-02-16 12:13 | disposition home or self-care (01) ==
LOC: 3N 12:46 → ED 12:46 → 3N 18:31